=== PATIENT | female | born 1955 | race Caucasian/White ===

== ENCOUNTER → 2017-03-23 | Outpatient (CLI) | payer MEDICARE, MEDICAID ==
[~2017-03-23] MED LIST: ACET650T40 PO; ALB18R INH; ALBU8.5H IH; AMIT100T53 PO; AZIT-1 PO; AZIT-18 PO; BLOO-1318 MC; BLOO-1511 MC; BLOO-884 MC; BUPR-136 PO; CEFU500T50 PO; CEPH500T7 PO; CETI-169 PO; CETI-176 PO; CHANTIX STARTER PACK; CIPR-344 PO; CITA-137 PO; CLON-298 PO; CLON-303 PO; DICL-192 PO; DIPH-740 PO; DIPH-741 PO; ESOM40CA42 PO; FLU45SYR25 IM ONLY; FLU60SYR30 IM ONLY; FLUO-201 PO; FLUT16SP19 NS; GABA-549 PO; GLIM2TAB43 PO; GLIM4TAB50 PO; HYDR-4228 PO; HYDR-4309 PO; INSU100I28 SQ; INSU100I30 SQ; KET10 PO; LANC-714 MC; LANI SUBQ; LEVO-85 PO; LEVO500T83 PO; LEVO50TA86 PO; LISI5TAB25 PO; LOR5/325 PO; LORA-802 PO; MELA1TAB23 PO; MELO-205 PO; MELO-207 PO; MELO7.5O3 PO; METF-410 PO; MIRT45TA66 PO; MONT10TA PO; MONT10TA4 PO; NEED-498 MC; NEED-653 SQ; NICO-218 TD; NITR-105 PO; OLOOD OD; OMEP-125 PO; ONDA4TAB PO; ONDA8TAB94 PO; PHEN118S56 PO; POLY17PO25 PO; PRED20TA6 PO; PROM50TA23 PO; RANI-324 PO; RANI75TA5 PO; RIZA5TAB26 PO; RIZA5TAB30 PO; SIMV-54 PO; SITA100T PO; SUMA100T32 PO; SUMA100T33 PO; SUMA5SPR7 NS; TOPI-119 PO; TOPI-120 PO; TOPI-28 PO; TOPI100C5 PO; TRAM-420 PO; TRAM100T22 PO; TRAZ-156 PO; TRAZ-163 PO; TRIA15CR40 TP; VAR05PT PO; [UNRECOGNIZED DRUG - CODE] MC; [UNRECOGNIZED DRUG - CODE] MC; [UNRECOGNIZED DRUG - CODE] MC; [UNRECOGNIZED DRUG - CODE] MC; [UNRECOGNIZED DRUG - CODE] MC; [UNRECOGNIZED DRUG - OTHER]
[2017-03-23 16:11] LABS: PLATELET COUNT, AUTOMATED 241 K/uL (150-450)
== END ==
LOC: LAB 15:48
PROVIDERS: ATTEND Emergency Medicine
DX: E11.9 Type 2 diabetes mellitus without complications (principal)
CPT/HCPCS: 36415; 81001; 82040; 82247; 82310; 82374; 82435; 82565; 82947; 84075; 84132; 84155; 84295; 84450; 84460; 84520; 85025

== ENCOUNTER 2017-05-11 15:47 | Emergency (ER) | payer MEDICARE, MEDICAID ==
[~2017-05-11 15:47] MED LIST changes: +INSU100I10 SUBQ; +VARE1TAB4 PO
[2017-05-11] MEDS ORDERED: MECLIZINE HCL 25 MG TAB PO ONE (16:00)
--- NOTE | 2017-05-11 16:04 | ER Report ---
History and Physical Time Seen By MD: 16:00 Hx. of Stated Complaint: Pt reporting she feels "funky" and symptoms are edelmira to low blood sugar. Pt gave herself 30 units insulin this morning. Pt is prescribed to take 30 units at night. Pt had a soda at 1500. HPI/ROS CHIEF COMPLAINT: Dizziness HISTORY OF PRESENT ILLNESS: 61-year-old female history of diabetes in both insulin and by mouth medications states that earlier in the day today she bent over felt rather dizzy some blurry vision she has no history of vertigo she does [place] felt better she did not check her sugar levels but she felt that she may be low on arrival to the ER she is at 96 patient has no chest pain shortness of breath the dizziness is completely reproducible with acute changes in head position patient is abdominal pain or discomfort no back pain no additional complaints noted no urinary bladder bowel incontinence and numbness of subtle paresthesias patient denies any neurological complaints other than the dizziness which resolved on her head hold still REVIEW OF SYSTEMS: Respiratory: No cough, no dyspnea. Cardiovascular: No chest pain, no palpitations. Gastrointestinal: No vomiting, no abdominal pain. Musculoskeletal: No back pain. Remainder of the 14 system rev: Yes Allergies: Coded Allergies: Influenza Virus Vaccines (Verified Allergy, Mild, 06/08/16) aspirin (Verified Allergy, Unknown, 06/08/16) glucosamine (Verified Allergy, Unknown, 06/08/16) morphine (Verified Allergy, Unknown, 06/08/16) Home Meds Active Scripts Insulin Glargine,Hum.rec.anlog (Basaglar Kwikpen U-100) 100 Unit/Ml (3 Ml) Insuln.pen, 10 UNITS SUBQ DAILY, #1 BOX 3 Refills Take 10 units at bedtime and increase by 2 units every 2 days until fasting glucose is 120 or less. Prov:SEEMA STILES MD 04/19/17 Montelukast Sodium (MONTELUKAST SODIUM) 10 Mg Tablet, 10 MG PO DAILY, #90 TAB 4 Refills Prov:SEEMA STILES MD 04/19/17 Lisinopril (LISINOPRIL) 5 Mg Tablet, 1 TAB PO QDAY, #90 TAB 4 Refills Prov:SEEMA STILES MD 03/16/17 Blood Sugar Diagnostic (PRODIGY NO CODING) 1 Each Strip, 1 EACH MC BID, #50 STRIP 11 Refills Prov:SEEMA STILES MD 02/18/17 Metformin Hcl (METFORMIN HCL) 500 Mg Tablet, 1 TAB PO BID, #180 TAB 3 Refills Prov:CHINYERE GUZMAN APRN [employer] 02/14/17 Fluticasone Prop 50 Mcg Ns (FLONASE 50 MCG NS) 16 Gm [place].susp, 2 SPRAYS NS QDAY, #1 BOT 2 Refills Prov:SEEMA STILES MD 02/10/17 Simvastatin (SIMVASTATIN) 40 Mg Tablet, 1 TAB PO HS, #90 TAB 1 Refill Prov:SEEMA STILES MD 02/02/17 Gabapentin (GABAPENTIN) 300 Mg Capsule, 300 MG PO DAILY, #540 CAPSULE 3 Refills 1 tab daily for three days. Increase by 1 tab every three days to a maximum of 2 tabs three times a day Prov:SEEMA STILES MD 11/19/16 Albuterol Sulfate 90 Mcg/Act (PROAIR HFA 90 MCG/ACT) 8.5 Gm Hfa.aer.ad, 1-2 PUFF IH 3-4XD, #1 INHALER 11 Refills Prov:SEEMA STILES MD 10/20/16 Esomeprazole Magnesium (NEXIUM) 40 Mg Capsule.dr, 1 CAP PO QDAY, #90 CAP 4 Refills Prov:SEEMA STILES MD 07/22/16 Sumatriptan Succinate (IMITREX) 100 Mg Tablet, 100 MG PO ONCE, #9 TAB 0 Refills Take one tablet at onset of headache and repeat in 2 hours if needed. Prov:SEEMA STILES MD 03/19/16 Topiramate (TOPIRAMATE) 100 Mg Tablet, 1 TAB PO BID, #180 TAB Prov:SEMEA STILES MD 01/06/16 Sitagliptin Phosphate (JANUVIA) 100 Mg Tablet, 100 MG PO QDAY, #30 TAB 2 Refills Prov:SEEMA STILES MD 12/22/15 Cetirizine Hcl (ZYRTEC) 10 Mg Tablet, 10 MG PO QDAY, #30 TAB 5 Refills Prov:SEEMA STILES MD 11/21/15 Back Brace (BACK STABILIZER) 1 Each Each, 1 EACH MC, #1 Prov:SEEMA STILES MD 07/08/15 [place], Insulin Disposable (INSULIN PEN NEEDLE) 1 Each Dis.needle, 1 BOX MC QDAY, #1 1 Refill Check fasting glucose every morning. Prov:SEEMA STILES MD 04/09/15 Lancets (LANCETS) 1 Each Each, 1 EACH MC DAILY, #100 9 Refills Prov:SEEMA STILES MD 04/09/15 Reported Medications Mirtazapine (MIRTAZAPINE) 45 Mg Tablet, 45 MG PO HS 03/30/15 Citalopram Hydrobromide (CITALOPRAM HBR) 10 Mg Tablet, 10 MG PO QDAY, #5 TAB 03/30/15 Clonazepam (CLONAZEPAM) 1 Mg Tablet, 1 TAB PO BID, #6 TAB 01/09/15 Discontinued Scripts Varenicline Tartrate (CHANTIX) 1 Mg Tablet, 1 MG PO BID, #180 TAB 3 Refills Prov:SEEMA STILES MD 04/26/17 Polyethylene Glycol 3350 (MIRALAX) 17 Gm Powd.pack, 17 GM PO 2-3XD for 7 Days, # 14 PKT Prov:KWADWO MITCHELL MD 07/28/16 Nicotine (NICODERM CQ) 1 Each Patch.td24, 1 EACH TD DAILY, #30 ADH.PATCH Prov:SEEMA STILES MD 02/11/16 Bupropion Hcl (BUPROPION HCL SR) 150 Mg Tablet.er, 150 MG PO DAILY, #60 TAB 1 tab po daily for three days and then twice daily after that Prov:SEEMA STILES MD 01/28/16 [pen] No Conflict Check Prov:SEEMA STILES MD 04/09/15 Reviewed Nurses Notes: Yes Old Medical Records Reviewed: Yes Hx Smoking: Yes Smoking Status: Current: Every Day Smoker Exposure to Second Hand Smoke?: Yes Hx Substance Use Disorder: No Hx Alcohol Use: No Constitutional Vital Sign - Last 24 Hours 05/11/17 05/11/17 05/11/17 05/11/17 15:52 15:52 15:57 16:00 Temp 97.5 Pulse 88 87 Resp 16 B/P (MAP) 145/58 145/58 (87) 118/46 (70) Pulse Ox 92 93 O2 Delivery Room Air 05/11/17 05/11/17 05/11/17 05/11/17 16:02 16:07 16:10 16:12 Pulse 84 85 81 80 B/P (MAP) 118/54 (75) 104/55 (71) Pulse Ox 90 91 90 05/11/17 05/11/17 05/11/17 05/11/17 16:15 16:15 16:30 16:45 Pulse 86 88 82 Resp 20 B/P (MAP) 122/58 (79) Pulse Ox 91 90 89 86 O2 Delivery Room Air 05/11/17 05/11/17 05/11/17 05/11/17 16:46 16:48 16:53 16:55 Pulse 79 B/P (MAP) 119/58 (78) Pulse Ox 86 86 O2 Flow Rate 1.0 Physical Exam General Appearance: The patient is alert, has no immediate need for airway protection and no current signs of toxicity. [ ] Eyes: Pupils equal and round no injection. Respiratory: Chest is non tender, lungs are clear to auscultation. Cardiac: regular rate and rhythm [ ] Gastrointestinal: Abdomen is soft and non tender, no masses, bowel sounds normal. Musculoskeletal: Neck: Neck is supple and non tender. Extremities have full range of motion and are non tender. Skin: No rashes or lesions. Neurologic examination patient has reproducible vertiginous symptoms with acute head changes from both the sitting a prone position no nystagmus noted otherwise neurologically intact GCS of 15 DIFFERENTIAL DIAGNOSIS: After history and physical exam differential diagnosis was considered for stroke versus vertigo versus cardiac abnormality Medical Decision Making Data Points Result Diagram: 05/11/17 1625 05/11/17 1625 Laboratory Hematology Test 05/11/17 00:00 05/11/17 16:25 05/11/17 17:04 D-Dimer Quantitative (PE/DVT) 0.35 ug/ml (0-0.50) Red Blood Count 5.00 M/uL (4.17-5.56) Mean Corpuscular Volume 92.1 fL (80.0-96.0) Mean Corpuscular Hemoglobin 30.7 pg (26.0-33.0) Mean Corpuscular Hemoglobin Concent 33.3 g/dL (32.0-36.0) Red Cell Distribution Width 19.3 % (11.5-14.5) Mean Platelet Volume 8.1 fL (7.2-11.1) Neutrophils (%) (Auto) 70.5 % (39.4-72.5) Lymphocytes (%) (Auto) 22.1 % (17.6-49.6) Monocytes (%) (Auto) 5.3 % (4.1-12.4) Eosinophils (%) (Auto) 1.4 % (0.4-6.7) Basophils (%) (Auto) 0.7 % (0.3-1.4) Nucleated RBC Relative Count (auto) 0.0 /100WBC Neutrophils # (Auto) 7.5 K/uL (2.0-7.4) Lymphocytes # (Auto) 2.3 K/uL (1.3-3.6) Monocytes # (Auto) 0.6 K/uL (0.3-1.0) Eosinophils # (Auto) 0.2 K/uL (0.0-0.5) Basophils # (Auto) 0.1 K/uL (0.0-0.1) Nucleated RBC Absolute Count (auto) 0.01 K/uL Sodium Level 143 mmol/L (137-145) Potassium Level 4.7 mmol/L (3.5-5.0) Chloride Level 108 mmol/L (98-107) Carbon Dioxide Level 23 mmol/L (22-31) Blood Urea Nitrogen 14 mg/dl (7-18) Creatinine 1.40 mg/dl (0.52-1.04) Glomerular Filtration Rate Calc 38.2 Random Glucose 99 mg/dl (75-110) Calcium Level 9.1 mg/dl (8.4-10.2) Total Bilirubin 0.3 mg/dl (0.2-1.3) Aspartate Amino Transf (AST/SGOT) 20 U/L (0-35) Alanine Aminotransferase (ALT/SGPT) 21 U/L (0-56) Alkaline Phosphatase 79 U/L (0-126) Troponin I < 0.012 ng/ml Total Protein 8.3 gm/dl (6.3-8.2) Albumin 4.4 g/dl (3.5-5.0) Urine Color Yellow Urine Clarity Cloudy Urine pH 5.0 pH (4.8-9.5) Urine Specific [place] 1.016 Urine Protein 30 mg/dL (NEGATIVE) Urine Glucose (UA) Negative mg/dL (NEGATIVE) Urine Ketones Negative mg/dL (NEGATIVE) Urine Blood Moderate (NEGATIVE) Urine Nitrite Negative (NEGATIVE) Urine Bilirubin Negative (NEGATIVE) Urine Urobilinogen Negative mg/dL (0.2-1.9) Urine Leukocyte Esterase Large (NEGATIVE) Urine RBC 9 /HPF (0-2/HPF) Urine WBC 226 /HPF (0-5/HPF) Urine WBC Clumps Many /HPF Urine Squamous Epithelial Cells Few /LPF (</=FEW) Urine Bacteria Negative /HPF (NONE-FEW) Urine Mucus None /HPF (NONE-FEW) Chemistry Test 05/11/17 00:00 05/11/17 16:25 05/11/17 17:04 D-Dimer Quantitative (PE/DVT) 0.35 ug/ml (0-0.50) White Blood Count 10.6 k/uL (4.5-11.0) Red Blood Count 5.00 M/uL (4.17-5.56) Hemoglobin 15.3 g/dL (12.0-16.0) Hematocrit 46.1 % (34.0-47.0) Mean Corpuscular Volume 92.1 fL (80.0-96.0) Mean Corpuscular Hemoglobin 30.7 pg (26.0-33.0) Mean Corpuscular Hemoglobin Concent 33.3 g/dL (32.0-36.0) Red Cell Distribution Width 19.3 % (11.5-14.5) Platelet Count 242 K/uL (150-450) Mean Platelet Volume 8.1 fL (7.2-11.1) Neutrophils (%) (Auto) 70.5 % (39.4-72.5) Lymphocytes (%) (Auto) 22.1 % (17.6-49.6) Monocytes (%) (Auto) 5.3 % (4.1-12.4) Eosinophils (%) (Auto) 1.4 % (0.4-6.7) Basophils (%) (Auto) 0.7 % (0.3-1.4) Nucleated RBC Relative Count (auto) 0.0 /100WBC Neutrophils # (Auto) 7.5 K/uL (2.0-7.4) Lymphocytes # (Auto) 2.3 K/uL (1.3-3.6) Monocytes # (Auto) 0.6 K/uL (0.3-1.0) Eosinophils # (Auto) 0.2 K/uL (0.0-0.5) Basophils # (Auto) 0.1 K/uL (0.0-0.1) Nucleated RBC Absolute Count (auto) 0.01 K/uL Glomerular Filtration Rate Calc 38.2 Calcium Level 9.1 mg/dl (8.4-10.2) Total Bilirubin 0.3 mg/dl (0.2-1.3) Aspartate Amino Transf (AST/SGOT) 20 U/L (0-35) Alanine Aminotransferase (ALT/SGPT) 21 U/L (0-56) Alkaline Phosphatase 79 U/L (0-126) Troponin I < 0.012 ng/ml Total Protein 8.3 gm/dl (6.3-8.2) Albumin 4.4 g/dl (3.5-5.0) Urine Color Yellow Urine Clarity Cloudy Urine pH 5.0 pH (4.8-9.5) Urine Specific [place] 1.016 Urine Protein 30 mg/dL (NEGATIVE) Urine Glucose (UA) Negative mg/dL (NEGATIVE) Urine Ketones Negative mg/dL (NEGATIVE) Urine Blood Moderate (NEGATIVE) Urine Nitrite Negative (NEGATIVE) Urine Bilirubin Negative (NEGATIVE) Urine Urobilinogen Negative mg/dL (0.2-1.9) Urine Leukocyte Esterase Large (NEGATIVE) Urine RBC 9 /HPF (0-2/HPF) Urine WBC 226 /HPF (0-5/HPF) Urine WBC Clumps Many /HPF Urine Squamous Epithelial Cells Few /LPF (</=FEW) Urine Bacteria Negative /HPF (NONE-FEW) Urine Mucus None /HPF (NONE-FEW) Coagulation Test 05/11/17 00:00 D-Dimer Quantitative (PE/DVT) 0.35 ug/ml Urinalysis Test 05/11/17 17:04 Urine Color Yellow Urine Clarity Cloudy Urine pH 5.0 pH (4.8-9.5) Urine Specific [place] 1.016 Urine Protein 30 mg/dL (NEGATIVE) Urine Glucose (UA) Negative mg/dL (NEGATIVE) Urine Ketones Negative mg/dL (NEGATIVE) Urine Blood Moderate (NEGATIVE) Urine Nitrite Negative (NEGATIVE) Urine Bilirubin Negative (NEGATIVE) Urine Urobilinogen Negative mg/dL (0.2-1.9) Urine Leukocyte Esterase Large (NEGATIVE) Urine RBC 9 /HPF (0-2/HPF) Urine WBC 226 /HPF (0-5/HPF) Urine WBC Clumps Many /HPF Urine Squamous Epithelial Cells Few /LPF (</=FEW) Urine Bacteria Negative /HPF (NONE-FEW) Urine Mucus None /HPF (NONE-FEW) ED Course/Re-evaluation ED Course pt with neg workuo other then uti antibiotica proimary fu Decision to Disposition Date: May 11, 2017 Decision to Disposition Time: 17:52 Depart Departure Latest Vital Signs Vital Signs Date Time Temp Pulse Resp B/P (MAP) Pulse Ox O2 Delivery O2 Flow Rate FiO2 05/11/17 16:55 1.0 05/11/17 16:53 79 86 05/11/17 16:46 119/58 (78) 05/11/17 16:15 20 Room Air 05/11/17 15:52 97.5 Impression: Primary Impression: Urinary tract infection Condition: Improved Disposition: HOME OR SELF-CARE Referrals: SEEMA STILES MD (PCP) 5 Days New Scripts Ciprofloxacin Hcl (CIPRO) 500 Mg Tablet 500 MG PO BID, #20 0 Refills Prov: KWADWO MITCHELL MD 05/11/17 Patient Instructions: Urinary Tract Infection in Women (DC) KWADWO MITCHELL MD May 11, 2017 16:04
--- NOTE | 2017-05-11 16:13 | EKG ---
FACILITY: [facility] - [place] PATIENT NAME: GUS CORONA : [id number] MR: [id number] V: [id number] EXAM DATE: ORDERING PHYSICIAN: KWADWO MITCHELL TECHNOLOGIST: PREMA Bautista Reason : SYNCOPE Blood Pressure : / mmHG Vent. Rate : 085 BPM Atrial Rate : 085 BPM P-R Int : 154 ms QRS Dur : 090 ms QT Int : 372 ms P-R-T Axes : 066 070 062 degrees QTc Int : 442 ms Poor baseline in virtually every lead - recommend repeat if needed Appears to be sinus rhythm Small Q waves inferolaterally Confirmed by VERONICA BETHEA ([id number]) on 05/11/2017 7:46:03 PM Referred By: PAULA Confirmed By:VERONICA BETHEA
[2017-05-11 16:40] LABS: PLATELET COUNT, AUTOMATED 242 K/uL (150-450)
--- NOTE | 2017-05-11 16:58 | RADIOLOGY IMAGING REPORT ---
FACILITY: [facility] PATIENT NAME: Caren Lofton : 1955 MR: [id number] V: [id number] EXAM DATE: ORDERING PHYSICIAN: KWADWO MITCHELL TECHNOLOGIST: Location: [facility] Patient: Caren Lofton : 1955 Visit/Account:[id number] Date of Sevice: 05/11/2017 CT Head without contrast Indication: Syncope. Comparison: None available Technique: Axial CT images were obtained through the brain from the skull base to the vertex without administration of IV contrast. Reformatted coronal and sagittal images were also obtained. One of the following dose optimization techniques was utilized in the performance of this exam: autom ated exposure control; adjustment of the mA and/or kV according to the patient's size; or use of an i terative reconstruction technique. Specific details can be referenced in the facility's radiology CT exam operational policy. Findings: No evidence of mass, mass effect, or midline shift. No acute intracranial hemorrhage or acute territorial infarction. No extra-axial fluid collection or hydrocephalus. No abnormal density. Perdomo/white matter differentiat ion appears normal. Bony structures show no fractures or lesions. The visualized paranasal sinuses and mastoid air cells are clear. IMPRESSION: 1. No acute intracranial abnormality. Report Dictated By: Chirag Blevins at 05/11/2017 4:49 PM Report E-Signed By: Chirag Blevins at 05/11/2017 4:52 PM WSN:[id number]
--- NOTE | 2017-05-11 17:08 | RADIOLOGY IMAGING REPORT ---
FACILITY: [facility] - [place], [place] PATIENT NAME: Caren Lofton : 1955 MR: [id number] V: [id number] EXAM DATE: ORDERING PHYSICIAN: KWADWO MITCHELL TECHNOLOGIST: [place] [facility] [place] Caren Lofton : 1955 Visit/Account:[id number] Date of Sevice: 05/11/2017 Technique: CHEST PA AND LAT HISTORY: syncope COMPARISON: Chest radiographs July 28, 2016 Findings: No lobar airspace consolidation. No pleural effusion. Scattered interstitial lung markings are noted. The cardiac silhouette is unchanged. IMPRESSION: 1. No acute cardiopulmonary process. Report Dictated By: Kevan Luke DO at 05/11/2017 5:02 PM Report E-Signed By: Kevan Luke DO at 05/11/2017 5:03 PM WSN:[id number]
[2017-05-11] MEDS ORDERED: CIPR-344 PO (17:53)
--- NOTE | 2017-05-11 17:56 | EKG ---
FACILITY: [facility] - [place] PATIENT NAME: GUS CORONA : [id number] MR: [id number] V: [id number] EXAM DATE: ORDERING PHYSICIAN: KWADWO MITCHELL TECHNOLOGIST: PREMA Bautista Reason : REPEAT Blood Pressure : / mmHG Vent. Rate : 075 BPM Atrial Rate : 075 BPM P-R Int : 164 ms QRS Dur : 088 ms QT Int : 406 ms P-R-T Axes : 069 064 060 degrees QTc Int : 453 ms Sinus rhythm Possible left atrial enlargement Small Q waves inferolaterally Nonspecific ST findings inferolateral leads Confirmed by VERONICA BETHEA ([id number]) on 05/11/2017 7:49:06 PM Referred By: PAULA Confirmed By:VERONICA BETHEA
[2017-05-11 18:02] VITALS: BP 115/47
[2017-05-13] MEDS ORDERED: GOLYTE PO (11:14)
== END 2017-05-11 18:33 | disposition home or self-care (01) ==
LOC: ER 15:52
DX: N39.0 Urinary tract infection, site not specified (principal)
CPT/HCPCS: 70450; 71046; 81001; 84484; 85025; 85379; 93005; 99284; J8597; 82040; 82247; 82310; 82374; 82435; 82565; 82947; 84075; 84132; 84155; 84295; 84450; 84460; 84520

== ENCOUNTER 2017-06-08 01:37 | Day surgery (SDC) | payer MEDICARE, MEDICAID ==
[2017-06-08] VITALS (7 sets, daily range): BP systolic 92–130; BP diastolic 52–90
[~2017-06-08] VITALS: Ht 170.2 cm; Wt 70.8 kg
[~2017-06-08 01:37] MED LIST changes: +ASPI81TA94 PO; +GOLYTE PO; -TRAM100T22 PO; +TRAM100T8 PO
[2017-06-08] MEDS ORDERED: LIDOCAINE/SOD BICARB 8.4% SYR ID ONE (06:30)
[2017-06-08] MEDS ORDERED: NORMOSOL R SOLN(*) 1000 ML BAG 1,000 ML IV PRN (06:30)
[2017-06-08] MEDS ORDERED: PROPOFOL EMUL(*) 10MG/ML 20 ML 60 ML ONE (06:54)
[2017-06-08] MEDS ORDERED: LIDOCAINE MPF 1% 5 ML VIAL ONE (06:54)
[2017-06-08] MEDS ORDERED: PROPOFOL EMUL(*) 10MG/ML 20 ML 20 ML ONE (07:01)
[2017-06-08] MEDS ORDERED: DLR(*) 1000 ML BAG 1,000 ML IV ONE (07:18)
--- NOTE | 2017-06-08 08:16 | Short(Outpt) Discharge Summary ---
Discharge Summary Reason for Hosp/Final Diag: (1) Colon cancer screening Status: Chronic Hospital Course & Plan: Colonoscopy completed without problems. (2) Constipation Status: Chronic Departure Discharge to: Home, Self Care Discharge Instructions Home Meds Active Scripts Peg/Electrolytes (GOLYTELY SOLUTION) 4,000 Ml Soln, 1 GAL PO ONCE, #1 GAL 0 Refills Prov:AAMIR STEVENSON MD 05/13/17 Montelukast Sodium (MONTELUKAST SODIUM) 10 Mg Tablet, 10 MG PO DAILY, #90 TAB 4 Refills Prov:SEEMA STILES MD 04/19/17 Blood Sugar Diagnostic (PRODIGY NO CODING) 1 Each Strip, 1 EACH MC BID, #50 STRIP 11 Refills Prov:SEEMA STILES MD 02/18/17 Metformin Hcl (METFORMIN HCL) 500 Mg Tablet, 1 TAB PO BID, #180 TAB 3 Refills Prov:CHINYERE GUZMAN APRN [employer] 02/14/17 Fluticasone Prop 50 Mcg Ns (FLONASE 50 MCG NS) 16 Gm [place].susp, 2 SPRAYS NS QDAY, #1 BOT 2 Refills Prov:SEEMA STILES MD 02/10/17 Simvastatin (SIMVASTATIN) 40 Mg Tablet, 1 TAB PO HS, #90 TAB 1 Refill Prov:SEEMA STILES MD 02/02/17 Gabapentin (GABAPENTIN) 300 Mg Capsule, 300 MG PO DAILY, #540 CAPSULE 3 Refills 1 tab daily for three days. Increase by 1 tab every three days to a maximum of 2 tabs three times a day Prov:SEEMA STILES MD 11/19/16 Albuterol Sulfate 90 Mcg/Act (PROAIR HFA 90 MCG/ACT) 8.5 Gm Hfa.aer.ad, 1-2 PUFF IH 3-4XD, #1 INHALER 11 Refills Prov:SEEMA STILES MD 10/20/16 Esomeprazole Magnesium (NEXIUM) 40 Mg Capsule.dr, 1 CAP PO QDAY, #90 CAP 4 Refills Prov:SEEMA STILES MD 07/22/16 Sumatriptan Succinate (IMITREX) 100 Mg Tablet, 100 MG PO ONCE, #9 TAB 0 Refills Take one tablet at onset of headache and repeat in 2 hours if needed. Prov:SEEMA STILES MD 03/19/16 Topiramate (TOPIRAMATE) 100 Mg Tablet, 1 TAB PO BID, #180 TAB Prov:SEEMA STILES MD 01/06/16 Sitagliptin Phosphate (JANUVIA) 100 Mg Tablet, 100 MG PO QDAY, #30 TAB 2 Refills Prov:SEEMA STILES MD 12/22/15 Cetirizine Hcl (ZYRTEC) 10 Mg Tablet, 10 MG PO QDAY, #30 TAB 5 Refills Prov:SEEMA STILES MD 11/21/15 Back Brace (BACK STABILIZER) 1 Each Each, 1 EACH MC, #1 Prov:SEEMA STILES MD 07/08/15 [place], Insulin Disposable (INSULIN PEN NEEDLE) 1 Each Dis.needle, 1 BOX MC QDAY, #1 1 Refill Check fasting glucose every morning. Prov:SEEMA STILES MD 04/09/15 Lancets (LANCETS) 1 Each Each, 1 EACH MC DAILY, #100 9 Refills Prov:SEEMA STILES MD 04/09/15 Reported Medications Aspirin (ASPIRIN) 81 Mg Tab.chew, 2 TAB PO QDAY, TAB.CHEW 06/01/17 Insulin Glargine (LANTUS) 100 Unit/Ml Soln, 30 UNIT SUBQ HS, ML 06/01/17 Mirtazapine (MIRTAZAPINE) 45 Mg Tablet, 45 MG PO HS 03/30/15 Clonazepam (CLONAZEPAM) 1 Mg Tablet, 1 TAB PO BID, #6 TAB 01/09/15 Discontinued Reported Medications Citalopram Hydrobromide (CITALOPRAM HBR) 10 Mg Tablet, 10 MG PO QDAY, #5 TAB 03/30/15 Discontinued Scripts Ciprofloxacin Hcl (CIPRO) 500 Mg Tablet, 500 MG PO BID, #20 0 Refills Prov:KWADWO MITCHELL MD 05/11/17 Insulin Glargine,Hum.rec.anlog (Basaglar Kwikpen U-100) 100 Unit/Ml (3 Ml) Insuln.pen, 10 UNITS SUBQ DAILY, #1 BOX 3 Refills Take 10 units at bedtime and increase by 2 units every 2 days until fasting glucose is 120 or less. Prov:SEEMA STILES MD 04/19/17 Lisinopril (LISINOPRIL) 5 Mg Tablet, 1 TAB PO QDAY, #90 TAB 4 Refills Prov:GOSEEMA MD 03/16/17 Diet: Regular Activity: As Tolerated Special Instructions: Your colonoscopy was completed without any problems and your prep was acceptable. I didn't find any polyps, cancers, or other problems in your colon. I recommend that your next colonoscopy should be in 10 years for screening. Attached with your paperwork is a bowel regimen to help with your constipation. Problem Qualifiers (1) Constipation: Constipation type: unspecified constipation type Qualified Codes: K59.00 - Constipation, unspecified AAMIR STEVENSON MD Jun 08, 2017 08:16
== END 2017-06-08 09:07 | disposition home or self-care (01) ==
LOC: OR 01:37
PROVIDERS: ATTEND Surgery
DX: Z12.11 Encounter for screening for malignant neoplasm of colon (principal); E11.9 Type 2 diabetes mellitus without complications
CPT/HCPCS: 00812; 36416; 82948; G0121; J2001; J2704

== ENCOUNTER 2017-06-10 14:18 | Emergency (ER) | payer MEDICARE, MEDICAID ==
[2017-06-10 15:00] VITALS: BP 117/58
[2017-06-10] MEDS ORDERED: SULF-198 PO (15:34)
--- NOTE | 2017-06-10 15:34 | ER Report ---
History and Physical Time Seen By MD: 14:20 Hx. of Stated Complaint: PATIENT REPORTS THAT HER PRIMARY CARE PROVIDER REQUESTED THAT SHE COME TO THE EMERGENCY DEPARTMENT FOR BLOOD GLUCOSE ISSUES HPI/ROS CHIEF COMPLAINT: Abnormal blood glucose HISTORY OF PRESENT ILLNESS: 61 yo female presents to ED with reports of irregularly high blood sugars the past few days. Pt states that she was prescribed Lantus 10 units/ml and was suppose to give her self 2 units at a time until she reached a "normal level." Patient states that blood sugars have been between 150-350 since starting the Lantus. She reports that her sugars are usually below 120. REVIEW OF SYSTEMS: Respiratory: No cough, no dyspnea. Cardiovascular: No chest pain, no palpitations. Gastrointestinal: No vomiting, no abdominal pain. Musculoskeletal: No back pain. Allergies: Coded Allergies: morphine (Verified Allergy, Severe, poss sz, 06/01/17) Influenza Virus Vaccines (Verified Allergy, Mild, 06/08/16) aspirin (Verified Adverse Reaction, Mild, 06/01/17) glucosamine (Verified Adverse Reaction, Unknown, 06/01/17) Home Meds Active Scripts Sulfamethoxazole/Trimet 800-160 Mg Tab (BACTRIM DS TABLET) 1 Each Tablet, 1 TAB PO Q12H, #14 TAB Prov:FELICIA MEDINA 06/10/17 Montelukast Sodium (MONTELUKAST SODIUM) 10 Mg Tablet, 10 MG PO DAILY, #90 TAB 4 Refills Prov:SEEMA STILES MD 04/19/17 Blood Sugar Diagnostic (PRODIGY NO CODING) 1 Each Strip, 1 EACH MC BID, #50 STRIP 11 Refills Prov:SEEMA STILES MD 02/18/17 Metformin Hcl (METFORMIN HCL) 500 Mg Tablet, 1 TAB PO BID, #180 TAB 3 Refills Prov:CHINYERE GUZMAN APRN WELDER SETTER ELECTRON BEAM MACHINE-C 02/14/17 Fluticasone Prop 50 Mcg Ns (FLONASE 50 MCG NS) 16 Gm [place].susp, 2 SPRAYS NS QDAY, #1 BOT 2 Refills Prov:SEEMA STILES MD 02/10/17 Simvastatin (SIMVASTATIN) 40 Mg Tablet, 1 TAB PO HS, #90 TAB 1 Refill Prov:SEEMA STILES MD 02/02/17 Gabapentin (GABAPENTIN) 300 Mg Capsule, 300 MG PO DAILY, #540 CAPSULE 3 Refills 1 tab daily for three days. Increase by 1 tab every three days to a maximum of 2 tabs three times a day Prov:SEEMA STILES MD 11/19/16 Albuterol Sulfate 90 Mcg/Act (PROAIR HFA 90 MCG/ACT) 8.5 Gm Hfa.aer.ad, 1-2 PUFF IH 3-4XD, #1 INHALER 11 Refills Prov:SEEMA STILES MD 10/20/16 Esomeprazole Magnesium (NEXIUM) 40 Mg Capsule.dr, 1 CAP PO QDAY, #90 CAP 4 Refills Prov:SEEMA STILES MD 07/22/16 Sumatriptan Succinate (IMITREX) 100 Mg Tablet, 100 MG PO ONCE, #9 TAB 0 Refills Take one tablet at onset of headache and repeat in 2 hours if needed. Prov:SEEMA STILES MD 03/19/16 Topiramate (TOPIRAMATE) 100 Mg Tablet, 1 TAB PO BID, #180 TAB Prov:SEEMA STILES MD 01/06/16 Sitagliptin Phosphate (JANUVIA) 100 Mg Tablet, 100 MG PO QDAY, #30 TAB 2 Refills Prov:SEEMA STILES MD 12/22/15 Cetirizine Hcl (ZYRTEC) 10 Mg Tablet, 10 MG PO QDAY, #30 TAB 5 Refills Prov:SEEMA STILES MD 11/21/15 Back Brace (BACK STABILIZER) 1 Each Each, 1 EACH MC, #1 Prov:SEEMA STILES MD 07/08/15 [place], Insulin Disposable (INSULIN PEN NEEDLE) 1 Each Dis.needle, 1 BOX MC QDAY, #1 1 Refill Check fasting glucose every morning. Prov:SEEMA STILES MD 04/09/15 Lancets (LANCETS) 1 Each Each, 1 EACH MC DAILY, #100 9 Refills Prov:SEEMA STILES MD 04/09/15 Reported Medications Aspirin (ASPIRIN) 81 Mg Tab.chew, 2 TAB PO QDAY, TAB.CHEW 06/01/17 Insulin Glargine (LANTUS) 100 Unit/Ml Soln, 30 UNIT SUBQ HS, ML 06/01/17 Mirtazapine (MIRTAZAPINE) 45 Mg Tablet, 45 MG PO HS 03/30/15 Clonazepam (CLONAZEPAM) 1 Mg Tablet, 1 TAB PO BID, #6 TAB 01/09/15 Discontinued Scripts Peg/Electrolytes (GOLYTELY SOLUTION) 4,000 Ml Soln, 1 GAL PO ONCE, #1 GAL 0 Refills Prov:AAMIR STEVENSON MD 05/13/17 Past Medical/Surgical History Patient has a past medical history of migraines, murmur, hyperlipidemia, congestion, pneumonia, PE, small bowel obstruction, cholecystitis, arthritis, fractures, back pain, diabetes, rheumatoid arthritis, substance abuse, panic attacks. Patient has surgical history of cholecystectomy, bowel surgery, back surgery. Patient has a family medical history of diabetes. Reviewed Nurses Notes: Yes Hx Smoking: Yes (1 ppd) Smoking Status: Current: Every Day Smoker Exposure to Second Hand Smoke?: Yes Hx Substance Use Disorder: No (VERY LITTLE IN EARLY ADOLESCENCE) Hx Alcohol Use: No Constitutional Vital Sign - Last 24 Hours 06/10/17 06/10/17 06/10/17 06/10/17 14:24 14:26 14:30 14:48 Pulse 82 Resp 20 B/P (MAP) 116/68 (84) 132/55 (80) Pulse Ox 96 06/10/17 15:00 B/P (MAP) 117/58 (77) Physical Exam General Appearance: The patient is alert, has no immediate need for airway protection and no current signs of toxicity. Eyes: Pupils equal and round no injection. Respiratory: Chest is non tender, lungs are clear to auscultation. Cardiac: regular rate and rhythm Gastrointestinal: Abdomen is soft and non tender, no masses, bowel sounds normal. Musculoskeletal: Neck: Neck is supple and non tender. Extremities have full range of motion and are non tender. Skin: No rashes or lesions. DIFFERENTIAL DIAGNOSIS: After history and physical exam differential diagnosis was considered for hyperglycemia, Urinary tract infection, and poorly controlled diabetes. Medical Decision Making Data Points Result Diagram: 06/10/17 1429 Laboratory Hematology Test 06/10/17 14:25 06/10/17 14:29 Urine Color Yellow Urine Clarity Slightly-cloudy Urine pH 6.0 pH (4.8-9.5) Urine Specific [place] 1.004 Urine Protein Negative mg/dL (NEGATIVE) Urine Glucose (UA) Negative mg/dL (NEGATIVE) Urine Ketones Negative mg/dL (NEGATIVE) Urine Blood Negative (NEGATIVE) Urine Nitrite Negative (NEGATIVE) Urine Bilirubin Negative (NEGATIVE) Urine Urobilinogen Negative mg/dL (0.2-1.9) Urine Leukocyte Esterase Large (NEGATIVE) Urine RBC 1 /HPF (0-2/HPF) Urine WBC 90 /HPF (0-5/HPF) Urine Squamous Epithelial Cells Many /LPF (</=FEW) Urine Bacteria Few /HPF (NONE-FEW) Urine Mucus None /HPF (NONE-FEW) Sodium Level 145 mmol/L (137-145) Potassium Level 3.8 mmol/L (3.5-5.0) Chloride Level 106 mmol/L (98-107) Carbon Dioxide Level 25 mmol/L (22-31) Blood Urea Nitrogen 10 mg/dl (7-18) Creatinine 1.20 mg/dl (0.52-1.04) Glomerular Filtration Rate Calc 45.7 Random Glucose 113 mg/dl (75-110) Calcium Level 9.2 mg/dl (8.4-10.2) Total Bilirubin 0.3 mg/dl (0.2-1.3) Aspartate Amino Transf (AST/SGOT) 29 U/L (0-35) Alanine Aminotransferase (ALT/SGPT) 22 U/L (0-56) Alkaline Phosphatase 82 U/L (0-126) Total Protein 8.2 gm/dl (6.3-8.2) Albumin 4.4 g/dl (3.5-5.0) Chemistry Test 06/10/17 14:25 06/10/17 14:29 Urine Color Yellow Urine Clarity Slightly-cloudy Urine pH 6.0 pH (4.8-9.5) Urine Specific [place] 1.004 Urine Protein Negative mg/dL (NEGATIVE) Urine Glucose (UA) Negative mg/dL (NEGATIVE) Urine Ketones Negative mg/dL (NEGATIVE) Urine Blood Negative (NEGATIVE) Urine Nitrite Negative (NEGATIVE) Urine Bilirubin Negative (NEGATIVE) Urine Urobilinogen Negative mg/dL (0.2-1.9) Urine Leukocyte Esterase Large (NEGATIVE) Urine RBC 1 /HPF (0-2/HPF) Urine WBC 90 /HPF (0-5/HPF) Urine Squamous Epithelial Cells Many /LPF (</=FEW) Urine Bacteria Few /HPF (NONE-FEW) Urine Mucus None /HPF (NONE-FEW) Glomerular Filtration Rate Calc 45.7 Calcium Level 9.2 mg/dl (8.4-10.2) Total Bilirubin 0.3 mg/dl (0.2-1.3) Aspartate Amino Transf (AST/SGOT) 29 U/L (0-35) Alanine Aminotransferase (ALT/SGPT) 22 U/L (0-56) Alkaline Phosphatase 82 U/L (0-126) Total Protein 8.2 gm/dl (6.3-8.2) Albumin 4.4 g/dl (3.5-5.0) Urinalysis Test 06/10/17 14:25 Urine Color Yellow Urine Clarity Slightly-cloudy Urine pH 6.0 pH (4.8-9.5) Urine Specific [place] 1.004 Urine Protein Negative mg/dL (NEGATIVE) Urine Glucose (UA) Negative mg/dL (NEGATIVE) Urine Ketones Negative mg/dL (NEGATIVE) Urine Blood Negative (NEGATIVE) Urine Nitrite Negative (NEGATIVE) Urine Bilirubin Negative (NEGATIVE) Urine Urobilinogen Negative mg/dL (0.2-1.9) Urine Leukocyte Esterase Large (NEGATIVE) Urine RBC 1 /HPF (0-2/HPF) Urine WBC 90 /HPF (0-5/HPF) Urine Squamous Epithelial Cells Many /LPF (</=FEW) Urine Bacteria Few /HPF (NONE-FEW) Urine Mucus None /HPF (NONE-FEW) ED Course/Re-evaluation ED Course Patient was admitted to examined, history and physical were obtained. Differential diagnoses were considered. On reexamination patient had clear lungs , regular heart. A whole blood glucose was performed. Her blood sugar was 117. He CMP and urinalysis were obtained. CMP showed a blood sugar 113, urinalysis showed leukocyte esterase with 90 white cells per high-power field. We discussed findings with patient. Patient did not understand how to take her Lantus. She been taking it sporadically throughout the day. Due that we did inform the patient to eat well tonight, have a snack before bedtime. She is return to emergency room if condition worsens. She is follow-up with her primary care provider to discuss a new glucometer as well as follow-up appointment with family educator. Patient is to take 30 units of Lantus at night, she is to start that tomorrow. Patient verbalized understanding and agreement. Decision to Disposition Date: Jun 10, 2017 Decision to Disposition Time: 15:35 Depart Departure Latest Vital Signs Vital Signs Date Time Temp Pulse Resp B/P (MAP) Pulse Ox O2 Delivery O2 Flow Rate FiO2 06/10/17 15:00 117/58 (77) 06/10/17 14:48 82 96 06/10/17 14:24 20 Impression: Primary Impression: UTI (urinary tract infection) Condition: Improved Disposition: HOME OR SELF-CARE Referrals: ALLIE CAMPOS (PCP) New Scripts Sulfamethoxazole/Trimet 800-160 Mg Tab (BACTRIM DS TABLET) 1 Each Tablet 1 TAB PO Q12H, #14 TAB Prov: FELICIA MEDINA 06/10/17 Patient Instructions: Urinary Tract Infection in Women (ED) Additional Instructions: Take Lantus on 30 units tomorrow night. Continue taking Lantus only at night with small snack. Eat well tonight. Complete course of antibiotics for urinary tract infection. Follow up with primary care in 1 weeks for diabetes. Return to ER if condition worsens. Problem Qualifiers Primary Impression: UTI (urinary tract infection) Urinary tract infection type: acute cystitis Hematuria presence: without hematuria Qualified Codes: N30.00 - Acute cystitis without hematuria FELICIA MEDINA Jun 10, 2017 15:34
== END 2017-06-10 15:49 | disposition home or self-care (01) ==
LOC: ER 14:19
DX: N30.00 Acute cystitis without hematuria (principal)
CPT/HCPCS: 36416; 81001; 82040; 82247; 82310; 82374; 82435; 82565; 82947; 82948; 84075; 84132; 84155; 84295; 84450; 84460; 84520; 87088; 99284

== ENCOUNTER → 2017-06-23 | Outpatient (CLI) | payer MEDICARE, MEDICAID ==
[~2017-06-23] MED LIST changes: +SULF-198 PO
== END ==
LOC: LAB 13:03
PROVIDERS: ATTEND Nurse Practitioner Psychiatric/Mental Health
DX: E10.65 Type 1 diabetes mellitus with hyperglycemia (principal)
CPT/HCPCS: 36415; 82040; 82247; 82310; 82374; 82435; 82565; 82947; 83036; 84075; 84132; 84155; 84295; 84450; 84460; 84520

== ENCOUNTER 2017-07-07 13:14 | Outpatient (RCR) | payer MEDICARE, MEDICAID ==
[~2017-07-07] VITALS: Ht 170.2 cm; Wt 69.4 kg
[~2017-07-07 13:14] MED LIST changes: -METF-410 PO; +METF-411 PO; -RANI-324 PO; +RANI-366 PO
--- NOTE | 2017-07-07 16:54 | Medical Nutrition Therapy ---
Nutrition Anthropometrics Height (Inches): 67 (stated) Weight (Pounds): 153 (standing scale) Luis Fernando Nutrition Score: Luis Fernando Nutrition Risk Score: Dietary Referral Nutrition Risk Factors: Nutrition Risk Comment: Nutrition/Food History Good Skipped Meals: Yes Alcohol Use: Never Exercise: Yes (does some walking at the park) Breakfast: cereal with whole milk Lunch: 4 egg rolls from the dollar store with ranch or sweet n sour sauce Dinner: lin sandwich or lin pancakes with diet syrup, chicken & biscuit/ gravy Snacks: sugar free candy or sugar free vanilla wafer cookies, ice cream Nutritional Education Nutrition Education Topic: Diabetic Nutrition Learning Barriers: Cognitive Learning Readiness: Interested Teaching Methods: Discussion, Handout Response to Teaching: Verbalize understanding, Reinforcement needed Teaching Recipient: Patient Nutrition Counseling: Pt provided education on how to utilize her glucose monitor properly to get accurate blood readings. Pt had 10 morning blood glucose measures below 80 in the current month. Pt had one blood glucose reading in the AM of 48. Pt reports feeling no symptoms of low blood sugar. Reviewed 15-15 rule for low BG. Pt takes both long acting insulin and sulfonyurea med at bedtime. Recommend talking to PCP about possibly changing 1 med to AM since both can cause hypoglycemia. Encoruaged pt to take BG before bedtime and if lower than 150- to eat a CHO. Pt provided diet education how to better balance carbohydrates and proteins with meals. Pt reported she didn't read well. Provided low literacy information on diet using plate method with ~ 50gm CGO or 3 serving CHO/meal using pictures of CHO with serving sizes. Pt receptive to diet education. Pt made support plan and behavioural goal. Pt desired goal of 130# that she weighed when she was younger. Current wt of 153# is a BMI of 24 which is in desired range. Informed pt that 130# would give her BMI of 20, on the low end of desired range. Pt set goal of wt loss to 140#. Encouraged exercise with tone to help with her body image. Diet hx very low in protein. Pt is on disablity and food stamps. Will refer pt to [facility] program. Discussed how to increase protein to help with BG control. Reviewed low cost protein foods for pt to add to diet. Pt scheduled for classes. Nutrition Monitoring & Eval Nutrition Follow-Up: Good Intake RD Patient Assessment Time: [address] Assessment Type: RD Education Nutritional Comment: Provided 90 minutes of diabetes education focusing on nutrtion, insulin and glucometer teaching. Copies To Copies to: ALLIE CAMPOS BETH Jul 07, 2017 16:28
--- NOTE | 2017-07-22 13:32 | Medical Nutrition Therapy ---
Nutritional Education Nutrition Education Topic: Diabetic Nutrition Learning Readiness: Interested Teaching Methods: Discussion, Handout, Demonstration Response to Teaching: Verbalize understanding Teaching Recipient: Patient Nutrition Counseling: Provided group diabetes education on: sick day management, oral health, complication, A1C, eye care and retinopathy, nephropathy, neuropathy, foot care, exercise, heart healthy, hypo and hyperglycemia, infection, personal health habits, stress, depression and sexual healthy. Nutrition Monitoring & Eval RD Patient Assessment Time: [address] Assessment Type: RD Education Nutritional Comment: lProvided 80 minutes of diabetes education focusing on life style skills Copies To Copies to: ALLIE CAMPOS BETH July 22, 2017 13:32
== END 2017-08-10 13:18 | disposition home or self-care (01) ==
LOC: DIET 13:14
PROVIDERS: ATTEND Nurse Practitioner Psychiatric/Mental Health
DX: Z71.3 Dietary counseling and surveillance (principal); E10.65 Type 1 diabetes mellitus with hyperglycemia; Z79.4 Long term (current) use of insulin; Z68.24 Body mass index [BMI] 24.0-24.9, adult
CPT/HCPCS: G0108; G0109

== ENCOUNTER 2017-08-10 22:20 | Emergency (ER) | payer MEDICARE, MEDICAID ==
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
[2017-08-11] VITALS: BP 119/54
== END 2017-08-11 00:10 | disposition home or self-care (01) ==
LOC: ER 22:26
DX: S80.11XA Contusion of right lower leg, initial encounter (principal); W50.1XXA Accidental kick by another person, initial encounter
CPT/HCPCS: 73564; 99282

== ENCOUNTER → 2017-08-11 | Outpatient (CLI) | payer MEDICARE, MEDICAID | LOC: LAB 11:49 | PROVIDERS: ATTEND Nurse Practitioner Psychiatric/Mental Health | DX: E10.65 Type 1 diabetes mellitus with hyperglycemia (principal) | CPT/HCPCS: 36415; 82040; 82247; 82310; 82374; 82435; 82565; 82947; 83036; 84075; 84132; 84155; 84295; 84450; 84460; 84520 ==

== ENCOUNTER 2018-01-17 12:54 | Emergency (ER) | payer MEDICARE, MEDICAID ==
[~2018-01-17 12:54] MED LIST changes: -CLON-298 PO; -CLON-303 PO; +CLON-331 PO; +CLON-333 PO; -HYDR-4309 PO; +HYDR-653 PO; -METF-411 PO; +METF-450 PO; -MIRT45TA66 PO; +MIRT45TA8 PO; -TRAZ-156 PO; -TRAZ-163 PO; +TRAZ100T31 PO; +TRAZ50TA34 PO
--- NOTE | 2018-01-17 13:08 | ER Report ---
History and Physical Time Seen By MD: 13:07 HPI/ROS CHIEF COMPLAINT: [] HISTORY OF PRESENT ILLNESS: [must have 4 elements] REVIEW OF SYSTEMS: Constitutional: [No fever, no chills.] Eyes: [No discharge.] ENT: [No sore throat.] Cardiovascular: [No chest pain, no palpitations.] Respiratory: [No cough, no shortness of breath.] Gastrointestinal: [No abdominal pain, no vomiting.] Genitourinary: [No hematuria.] Musculoskeletal: [No back pain.] Skin: [No rashes.] Neurological: [No headache.] Allergies: Coded Allergies: morphine (Verified Allergy, Severe, poss sz, 08/10/17) Influenza Virus Vaccines (Verified Allergy, Mild, 08/10/17) aspirin (Verified Adverse Reaction, Mild, 08/10/17) glucosamine (Verified Adverse Reaction, Unknown, 08/10/17) Home Meds Active Scripts Esomeprazole Magnesium (NEXIUM) 40 Mg Capsule.dr, 1 CAP PO QDAY, #90 CAP 4 Refills Prov:SEEMA STILES MD 09/23/17 Montelukast Sodium (MONTELUKAST SODIUM) 10 Mg Tablet, 10 MG PO DAILY, #90 TAB 4 Refills Prov:SEEMA STILES MD 04/19/17 Blood Sugar Diagnostic (PRODIGY NO CODING) 1 Each Strip, 1 EACH MC BID, #50 STRIP 11 Refills Prov:SEEMA STILES MD 02/18/17 Metformin Hcl (METFORMIN HCL) 500 Mg Tablet, 1 TAB PO BID, #180 TAB 3 Refills Prov:CHINYERE GUZMAN APRN CRITICAL POWER TECHNICIAN-C 02/14/17 Fluticasone Prop 50 Mcg Ns (FLONASE 50 MCG NS) 16 Gm [place].susp, 2 SPRAYS NS QDAY, #1 BOT 2 Refills Prov:SEEMA STILES MD 02/10/17 Simvastatin (SIMVASTATIN) 40 Mg Tablet, 1 TAB PO HS, #90 TAB 1 Refill Prov:SEEMA STILES MD 02/02/17 Gabapentin (GABAPENTIN) 300 Mg Capsule, 300 MG PO DAILY, #540 CAPSULE 3 Refills 1 tab daily for three days. Increase by 1 tab every three days to a maximum of 2 tabs three times a day Prov:SEEMA STILES MD 11/19/16 Albuterol Sulfate 90 Mcg/Act (PROAIR HFA 90 MCG/ACT) 8.5 Gm Hfa.aer.ad, 1-2 PUFF IH 3-4XD, #1 INHALER 11 Refills Prov:SEEMA STILES MD 10/20/16 Topiramate (TOPIRAMATE) 100 Mg Tablet, 1 TAB PO BID, #180 TAB Prov:SEEMA STILES MD 01/06/16 Sitagliptin Phosphate (JANUVIA) 100 Mg Tablet, 100 MG PO QDAY, #30 TAB 2 Refills Prov:SEEMA STILES MD 12/22/15 Cetirizine Hcl (ZYRTEC) 10 Mg Tablet, 10 MG PO QDAY, #30 TAB 5 Refills Prov:SEEMA STILES MD 11/21/15 Back Brace (BACK STABILIZER) 1 Each Each, 1 EACH MC, #1 Prov:SEEMA STILES MD 07/08/15 [place], Insulin Disposable (INSULIN PEN NEEDLE) 1 Each Dis.needle, 1 BOX MC QDAY, #1 1 Refill Check fasting glucose every morning. Prov:SEEMA STILES MD 04/09/15 Lancets (LANCETS) 1 Each Each, 1 EACH MC DAILY, #100 9 Refills Prov:SEEMA STILES MD 04/09/15 Reported Medications Aspirin (ASPIRIN) 81 Mg Tab.chew, 2 TAB PO QDAY, TAB.CHEW 06/01/17 Insulin Glargine (LANTUS) 100 Unit/Ml Soln, 30 UNIT SUBQ HS, ML 06/01/17 Mirtazapine (MIRTAZAPINE) 45 Mg Tablet, 45 MG PO HS 03/30/15 Clonazepam (CLONAZEPAM) 1 Mg Tablet, 1 TAB PO BID, #6 TAB 01/09/15 Hx Smoking: Yes (1 ppd) Smoking Status: Current: Every Day Smoker Exposure to Second Hand Smoke?: Yes Hx Substance Use Disorder: No (VERY LITTLE IN EARLY ADOLESCENCE) Hx Alcohol Use: No Physical Exam General Appearance: [The patient is alert, has no immediate need for airway protection and no signs of toxicity.] [ ] [Eyes:] [Pupils equal and round no pallor or injection.] [ENT, Mouth:] [Mucous membranes are moist.] Respiratory: [There are no retractions, lungs are clear to auscultation.] Cardiovascular: [Regular rate and rhythm.] [ ] Gastrointestinal: [Abdomen is soft and non tender, no masses, bowel sounds normal.] [Neurological:] [ ] [Skin:] [Warm and dry, no rashes.] [Musculoskeletal:] [Neck is supple non tender.] [Extremities are nontender, nonswollen and have full range of motion.] [ ] [DIFFERENTIAL DIAGNOSIS: After history and physical exam differential diagnosis was considered for] [ ] Depart Departure Condition: Stable Disposition: HOME OR SELF-CARE Referrals: ALLIE CAMPOS (PCP) CJ SANCHEZ-BC Jan 17, 2018 13:08
[2018-01-17 14:30] VITALS: BP 132/66
--- NOTE | 2018-01-17 14:41 | ER Report ---
History and Physical Time Seen By MD: 14:30 Hx. of Stated Complaint: sinus pressures HPI/ROS CHIEF COMPLAINT: Sinus pressure HISTORY OF PRESENT ILLNESS: Patient is a 62-year-old female who comes in with complaint of 4 days of sinus pressure or nasal discharge fever last night to 102 Fahrenheit. Patient has been seeing her primary care provider Allie Recinos over the past 3 weeks and has been diagnosed with sinusitis. She's been on a ntibiotics for week and then a few days later she has recurrence of her symptoms. She then switches to a different antibiotic again feels better and then symptoms return. She presents to the emergency department today for evaluation. She does have a history of migraine headaches but states this feels different. She does report postnasal drip and sore throat. She also admits to a nonproductive cough. Patient is a smoker. REVIEW OF SYSTEMS: ENT: Sinus pressure, nasal discharge, sore throat, postnasal drip Respiratory: Dry cough Cardiovascular: No chest pain, no palpitations. Gastrointestinal: No vomiting, no abdominal pain. Musculoskeletal: No back pain. Allergies: Coded Allergies: morphine (Verified Allergy, Severe, poss sz, 01/17/18) Influenza Virus Vaccines (Verified Allergy, Mild, 01/17/18) aspirin (Verified Adverse Reaction, Mild, 01/17/18) glucosamine (Verified Adverse Reaction, Unknown, 01/17/18) Home Meds Active Scripts Pseudoephedrine Hcl (SUDAFED 12 HOUR) 120 Mg Tablet.er, 120 MG PO Q12H for sinus pressure, #28 TAB 0 Refills Prov:MERCEDES WYNN MD 01/17/18 Fluticasone Prop 50 Mcg Ns (FLONASE 50 MCG NS) 16 Gm [place].susp, 1 SPRAY NS BID, #1 BOT 0 Refills Prov:MERCEDES WYNN MD 01/17/18 Amoxicillin/Pot Clav 875-125 Mg Tab (AUGMENTIN 875-125 TABLET) 1 Each Tablet, 1 TAB PO Q12H for 14 Days, #28 TAB 0 Refills Prov:MERCEDES WYNN MD 01/17/18 Esomeprazole Magnesium (NEXIUM) 40 Mg Capsule.dr, 1 CAP PO QDAY, #90 CAP 4 Refills Prov:SEEMA STILES MD 09/23/17 Montelukast Sodium (MONTELUKAST SODIUM) 10 Mg Tablet, 10 MG PO DAILY, #90 TAB 4 Refills Prov:SEEMA STILES MD 04/19/17 Blood Sugar Diagnostic (PRODIGY NO CODING) 1 Each Strip, 1 EACH MC BID, #50 STRIP 11 Refills Prov:SEEMA STILES MD 02/18/17 Metformin Hcl (METFORMIN HCL) 500 Mg Tablet, 1 TAB PO BID, #180 TAB 3 Refills Prov:CHINYERE GUZMAN APRN PROCESSING ANALYST-C 02/14/17 Fluticasone Prop 50 Mcg Ns (FLONASE 50 MCG NS) 16 Gm [place].susp, 2 SPRAYS NS QDAY, #1 BOT 2 Refills Prov:SEEMA STILES MD 02/10/17 Simvastatin (SIMVASTATIN) 40 Mg Tablet, 1 TAB PO HS, #90 TAB 1 Refill Prov:SEEMA STILES MD 02/02/17 Gabapentin (GABAPENTIN) 300 Mg Capsule, 300 MG PO DAILY, #540 CAPSULE 3 Refills 1 tab daily for three days. Increase by 1 tab every three days to a maximum of 2 tabs three times a day Prov:SEEMA STILES MD 11/19/16 Albuterol Sulfate 90 Mcg/Act (PROAIR HFA 90 MCG/ACT) 8.5 Gm Hfa.aer.ad, 1-2 PUFF IH 3-4XD, #1 INHALER 11 Refills Prov:SEEMA STILES MD 10/20/16 Topiramate (TOPIRAMATE) 100 Mg Tablet, 1 TAB PO BID, #180 TAB Prov:SEEMA STILES MD 01/06/16 Sitagliptin Phosphate (JANUVIA) 100 Mg Tablet, 100 MG PO QDAY, #30 TAB 2 Refills Prov:SEEMA STILES MD 12/22/15 Cetirizine Hcl (ZYRTEC) 10 Mg Tablet, 10 MG PO QDAY, #30 TAB 5 Refills Prov:SEEMA STILES MD 11/21/15 [place], Insulin Disposable (INSULIN PEN NEEDLE) 1 Each Dis.needle, 1 BOX MC QDAY, #1 1 Refill Check fasting glucose every morning. Prov:SEEMA STILES MD 04/09/15 Lancets (LANCETS) 1 Each Each, 1 EACH MC DAILY, #100 9 Refills Prov:SEEMA STILES MD 04/09/15 Reported Medications Aspirin (ASPIRIN) 81 Mg Tab.chew, 2 TAB PO QDAY, TAB.CHEW 06/01/17 Insulin Glargine (LANTUS) 100 Unit/Ml Soln, 30 UNIT SUBQ HS, ML 06/01/17 Mirtazapine (MIRTAZAPINE) 45 Mg Tablet, 45 MG PO HS 03/30/15 Clonazepam (CLONAZEPAM) 1 Mg Tablet, 1 TAB PO BID, #6 TAB 01/09/15 Discontinued Scripts Back Brace (BACK STABILIZER) 1 Each Each, 1 EACH , #1 Prov:SEEMA STILES MD 07/08/15 Past Medical/Surgical History Insulin requiring diabetic, reactive airways disease, migraines Hx Smoking: Yes (1 ppd) Smoking Status: Current: Every Day Smoker Exposure to Second Hand Smoke?: Yes Hx Substance Use Disorder: No (VERY LITTLE IN EARLY ADOLESCENCE) Hx Alcohol Use: No Constitutional Vital Sign - Last 24 Hours 01/17/18 14:00 Temp 98.2 Pulse 82 Resp 14 B/P (MAP) 135/63 Pulse Ox 88 O2 Delivery Room Air Physical Exam General Appearance: The patient is alert, has no immediate need for airway protection and no current signs of toxicity. Eyes: Pupils equal and round no injection. ENT: TMs and canals clear bilaterally. Oropharynx reveals posterior cobblestoning. No tenderness to palpation of the maxillary and frontal sinuses bilaterally. Ears reveal a mucoid discharge bilaterally. Respiratory: Chest is non tender, lungs are clear to auscultation. Mild wheeze with forced exhalation Cardiac: regular rate and rhythm Gastrointestinal: Abdomen is soft and non tender, no masses, bowel sounds normal. Musculoskeletal: Neck: Neck is supple and non tender. Extremities have full range of motion and are non tender. Skin: No rashes or lesions. Medical Decision Making EKG/Imaging Imaging X-ray negative by my interpretation for acute process. ED Course/Re-evaluation ED Course History and physical exam 0.2 sinusitis. I believe patient has only partially treated sinusitis that of rebound when her antibiotic course is complete. I will prescribe a 14 day course of Augmentin will also prescribe Sudafed. Flonase and encouraged patient to use her at home inhaler for cough. Decision to Disposition Date: Jan 17, 2018 Decision to Disposition Time: 14:50 Depart Departure Latest Vital Signs Vital Signs Date Time Temp Pulse Resp B/P (MAP) Pulse Ox O2 Delivery O2 Flow Rate FiO2 01/17/18 14:00 98.2 82 14 135/63 88 Room Air Impression: Primary Impression: Sinusitis Condition: Condition Unchanged Disposition: HOME OR SELF-CARE Referrals: ALLIE RECINOS (PCP) DESTINY SHEN JR, MD Make a follow up appointment in two weeks if your sinus symptoms persist New Scripts Pseudoephedrine Hcl (SUDAFED 12 HOUR) 120 Mg Tablet.er 120 MG PO Q12H for sinus pressure, #28 TAB 0 Refills Prov: MERCEDES WYNN MD 01/17/18 Fluticasone Prop 50 Mcg Ns (FLONASE 50 MCG NS) 16 Gm [place].susp 1 SPRAY NS BID, #1 BOT 0 Refills Prov: MERCEDES WYNN MD 01/17/18 Amoxicillin/Pot Clav 875-125 Mg Tab (AUGMENTIN 875-125 TABLET) 1 Each Tablet 1 TAB PO Q12H for 14 Days, #28 TAB 0 Refills Prov: MERCEDES WYNN MD 01/17/18 Patient Instructions: Sinusitis (GEN) Additional Instructions: Take your antibiotics as directed until complete. Continue all your outpatient medications. Make a follow up appointment with Dr Sehn if your symptoms persist more than 14 days Problem Qualifiers Primary Impression: Sinusitis Sinusitis location: unspecified location Chronicity: acute Recurrence: recurrent Qualified Codes: J01.91 - Acute recurrent sinusitis, unspecified MERCEDES WYNN MD Jan 17, 2018 14:41
[2018-01-17] MEDS ORDERED: PSEU120T69 PO (14:44)
[2018-01-17] MEDS ORDERED: FLUT16SP19 NS (14:44)
[2018-01-17] MEDS ORDERED: AMOX-559 PO (14:44)
--- NOTE | 2018-01-17 15:02 | RADIOLOGY IMAGING REPORT ---
FACILITY: [facility] [place] PATIENT NAME: Caren Lofton : 1955 MR: [id number] V: [id number] EXAM DATE: ORDERING PHYSICIAN: MERCEDES WYNN TECHNOLOGIST: Location: [facility] Patient: Caren Lofton : 1955 Visit/Account:[id number] Date of Sevice: 01/17/2018 2 VIEWS CHEST INDICATION: Cough. COMPARISON: 05/11/2017 FINDINGS: The lungs are clear and are well aerated. No effusion or pneumothorax. Slightly asymmetric pleural pa renchymal opacity in the right apex is seen. This has been present on exams dating back to at least 2 014 and is unchanged. Heart size and mediastinal contours are normal. IMPRESSION: 1. No radiographic evidence of active disease. Report Dictated By: Jluis Hart at 01/17/2018 2:52 PM Report E-Signed By: Jluis Hart at 01/17/2018 2:57 PM WSN:[id number]
== END 2018-01-17 14:59 | disposition home or self-care (01) ==
LOC: ER 14:27
DX: J01.91 Acute recurrent sinusitis, unspecified (principal); F17.210 Nicotine dependence, cigarettes, uncomplicated
CPT/HCPCS: 71046; 99283

== ENCOUNTER 2018-02-05 07:32 | Emergency (ER) | payer MEDICARE, MEDICAID ==
[~2018-02-05 07:32] MED LIST changes: +AMOX-559 PO; +PSEU120T69 PO; -RANI75TA5 PO; +RANI75TA51 PO
--- NOTE | 2018-02-05 07:34 | ER Report ---
History and Physical Time Seen By MD: 07:35 HPI/ROS CHIEF COMPLAINT: Elevated Blood Sugar HISTORY OF PRESENT ILLNESS: Patient is a 60-year-old female who is noticed her blood sugars been elevated for the last few days between 200-300 mg/dL. She is on 80 mg of Lantus every evening around 5 PM along with Januvia and metformin. She denies any recent changes in diet although she has been treated recently for a sinus infection. Patient reports episodes of confusion at times. Reports falls. She states this was when she was being treated for her sinus infection. Currently she denies any sinus pressure pain. She denies any fevers or chills. REVIEW OF SYSTEMS: Constitutional: No fever, no chills. Eyes: No discharge. ENT: No sore throat. Cardiovascular: No chest pain, no palpitations. Respiratory: No cough, no shortness of breath. Gastrointestinal: No abdominal pain, no vomiting. Genitourinary: No hematuria. Musculoskeletal: No back pain. Skin: No rashes. Neurological: No headache. Allergies: Coded Allergies: morphine (Verified Allergy, Severe, poss sz, 02/05/18) Influenza Virus Vaccines (Verified Allergy, Mild, 02/05/18) aspirin (Verified Adverse Reaction, Mild, 02/05/18) glucosamine (Verified Adverse Reaction, Unknown, 02/05/18) Home Meds Active Scripts Pseudoephedrine Hcl (SUDAFED 12 HOUR) 120 Mg Tablet.er, 120 MG PO Q12H for sinus pressure, #28 TAB 0 Refills Prov:MERCEDES WYNN MD 01/17/18 Fluticasone Prop 50 Mcg Ns (FLONASE 50 MCG NS) 16 Gm [place].susp, 1 SPRAY NS BID, #1 BOT 0 Refills Prov:MERCEDES WYNN MD 01/17/18 Esomeprazole Magnesium (NEXIUM) 40 Mg Capsule.dr, 1 CAP PO QDAY, #90 CAP 4 Refills Prov:SEEMA STILES MD 09/23/17 Montelukast Sodium (MONTELUKAST SODIUM) 10 Mg Tablet, 10 MG PO DAILY, #90 TAB 4 Refills Prov:SEEMA STILES MD 04/19/17 Blood Sugar Diagnostic (PRODIGY NO CODING) 1 Each Strip, 1 EACH MC BID, #50 STRIP 11 Refills Prov:SEEMA SITLES MD 02/18/17 Metformin Hcl (METFORMIN HCL) 500 Mg Tablet, 1 TAB PO BID, #180 TAB 3 Refills Prov:CHINYERE GUZMAN APRN PULLER OUT-C 02/14/17 Fluticasone Prop 50 Mcg Ns (FLONASE 50 MCG NS) 16 Gm [place].susp, 2 SPRAYS NS QDAY, #1 BOT 2 Refills Prov:SEEMA STILES MD 02/10/17 Simvastatin (SIMVASTATIN) 40 Mg Tablet, 1 TAB PO HS, #90 TAB 1 Refill Prov:SEEMA STILES MD 02/02/17 Gabapentin (GABAPENTIN) 300 Mg Capsule, 300 MG PO DAILY, #540 CAPSULE 3 Refills 1 tab daily for three days. Increase by 1 tab every three days to a maximum of 2 tabs three times a day Prov:SEEMA STILES MD 11/19/16 Albuterol Sulfate 90 Mcg/Act (PROAIR HFA 90 MCG/ACT) 8.5 Gm Hfa.aer.ad, 1-2 PUFF IH 3-4XD, #1 INHALER 11 Refills Prov:SEEMA STILES MD 10/20/16 Topiramate (TOPIRAMATE) 100 Mg Tablet, 1 TAB PO BID, #180 TAB Prov:SEEMA STILES MD 01/06/16 Sitagliptin Phosphate (JANUVIA) 100 Mg Tablet, 100 MG PO QDAY, #30 TAB 2 Refills Prov:SEEMA STILES MD 12/22/15 Cetirizine Hcl (ZYRTEC) 10 Mg Tablet, 10 MG PO QDAY, #30 TAB 5 Refills Prov:SEEMA STILES MD 11/21/15 [place], Insulin Disposable (INSULIN PEN NEEDLE) 1 Each Dis.needle, 1 BOX MC QDAY, #1 1 Refill Check fasting glucose every morning. Prov:SEEMA STILES MD 04/09/15 Lancets (LANCETS) 1 Each Each, 1 EACH MC DAILY, #100 9 Refills Prov:SEEMA STILES MD 04/09/15 Reported Medications Aspirin (ASPIRIN) 81 Mg Tab.chew, 2 TAB PO QDAY, TAB.CHEW 06/01/17 Insulin Glargine (LANTUS) 100 Unit/Ml Soln, 30 UNIT SUBQ HS, ML 06/01/17 Mirtazapine (MIRTAZAPINE) 45 Mg Tablet, 45 MG PO HS 03/30/15 Clonazepam (CLONAZEPAM) 1 Mg Tablet, 1 TAB PO BID, #6 TAB 01/09/15 Discontinued Scripts Amoxicillin/Pot Clav 875-125 Mg Tab (AUGMENTIN 875-125 TABLET) 1 Each Tablet, 1 TAB PO Q12H for 14 Days, #28 TAB 0 Refills Prov:MERCEDES WYNN MD 01/17/18 Past Medical/Surgical History Insulin requiring diabetic, reactive airways disease, migraines Hx Smoking: Yes (1 ppd) Smoking Status: Current: Every Day Smoker Exposure to Second Hand Smoke?: Yes Hx Substance Use Disorder: No (VERY LITTLE IN EARLY ADOLESCENCE) Hx Alcohol Use: No Constitutional Vital Sign - Last 24 Hours 02/05/18 02/05/18 02/05/18 02/05/18 07:40 07:51 07:51 08:00 Temp 97.7 Pulse 89 Resp 19 B/P (MAP) 125/58 (80) 125/58 120/57 (78) Pulse Ox 90 O2 Delivery Room Air O2 Flow Rate 2.0 02/05/18 02/05/18 02/05/18 02/05/18 08:02 08:07 08:30 08:37 Pulse 87 87 80 B/P (MAP) 125/54 (77) Pulse Ox 94 94 93 02/05/18 02/05/18 02/05/18 02/05/18 09:00 09:07 09:30 09:37 Pulse 76 74 B/P (MAP) 114/50 (71) 102/51 (68) Pulse Ox 95 94 02/05/18 02/05/18 02/05/18 02/05/18 10:00 10:05 10:30 10:35 Pulse 75 79 B/P (MAP) 123/55 (77) 141/64 (89) Pulse Ox 92 92 02/05/18 10:48 B/P (MAP) 104/71 (82) Physical Exam General Appearance: The patient is alert, has no immediate need for airway protection and no signs of toxicity. Eyes: Pupils equal and round no pallor or injection. ENT, Mouth: Mucous membranes are moist. Respiratory: There are no retractions, lungs are clear to auscultation. Cardiovascular: Regular rate and rhythm. Gastrointestinal: Abdomen is soft and non tender, no masses, bowel sounds normal. Neurological: Awake and alert Skin: Warm and dry, no rashes. Musculoskeletal: Neck is supple non tender. Extremities are nontender, nonswollen and have full range of motion. Medical Decision Making Data Points Result Diagram: 02/05/18 0807 02/05/18 0807 Laboratory Hematology Test 02/05/18 08:07 02/05/18 08:09 Red Blood Count 4.65 M/uL (4.17-5.56) Mean Corpuscular Volume 91.7 fL (80.0-96.0) Mean Corpuscular Hemoglobin 30.8 pg (26.0-33.0) Mean Corpuscular Hemoglobin Concent 33.6 g/dL (32.0-36.0) Red Cell Distribution Width 16.3 % (11.5-14.5) Mean Platelet Volume 8.2 fL (7.2-11.1) Neutrophils (%) (Auto) 61.5 % (39.4-72.5) Lymphocytes (%) (Auto) 30.1 % (17.6-49.6) Monocytes (%) (Auto) 5.9 % (4.1-12.4) Eosinophils (%) (Auto) 2.0 % (0.4-6.7) Basophils (%) (Auto) 0.5 % (0.3-1.4) Nucleated RBC Relative Count (auto) 0.1 /100WBC Neutrophils # (Auto) 5.6 K/uL (2.0-7.4) Lymphocytes # (Auto) 2.7 K/uL (1.3-3.6) Monocytes # (Auto) 0.5 K/uL (0.3-1.0) Eosinophils # (Auto) 0.2 K/uL (0.0-0.5) Basophils # (Auto) 0.0 K/uL (0.0-0.1) Nucleated RBC Absolute Count (auto) 0.01 K/uL Sodium Level 140 mmol/L (137-145) Potassium Level 4.1 mmol/L (3.5-5.0) Chloride Level 106 mmol/L (98-107) Carbon Dioxide Level 22 mmol/L (22-31) Blood Urea Nitrogen 18 mg/dl (7-18) Creatinine 1.00 mg/dl (0.52-1.04) Glomerular Filtration Rate Calc 56.2 Random Glucose 186 mg/dl (75-110) Calcium Level 8.9 mg/dl (8.4-10.2) Total Bilirubin 0.3 mg/dl (0.2-1.3) Aspartate Amino Transf (AST/SGOT) 17 U/L (0-35) Alanine Aminotransferase (ALT/SGPT) 19 U/L (0-56) Alkaline Phosphatase 59 U/L (0-126) Total Protein 7.0 g/dl (6.3-8.2) Albumin 3.7 g/dl (3.5-5.0) Lipase 386 U/L (23-300) Urine Color Yellow Urine Clarity Clear Urine pH 5.0 pH (4.8-9.5) Urine Specific [place] 1.017 Urine Protein 100 mg/dL (NEGATIVE) Urine Glucose (UA) Negative mg/dL (NEGATIVE) Urine Ketones Negative mg/dL (NEGATIVE) Urine Blood Negative (NEGATIVE) Urine Nitrite Negative (NEGATIVE) Urine Bilirubin Negative (NEGATIVE) Urine Urobilinogen Negative mg/dL (0.2-1.9) Urine Leukocyte Esterase Small (NEGATIVE) Urine RBC 2 /HPF (0-2/HPF) Urine WBC 7 /HPF (0-5/HPF) Urine Squamous Epithelial Cells Moderate /LPF (</=FEW) Urine Bacteria Few /HPF (NONE-FEW) Urine Hyaline Casts Few /LPF (NONE-FEW) Urine Mucus None /HPF (NONE-FEW) Chemistry Test 02/05/18 08:07 02/05/18 08:09 White Blood Count 9.1 k/uL (4.5-11.0) Red Blood Count 4.65 M/uL (4.17-5.56) Hemoglobin 14.3 g/dL (12.0-16.0) Hematocrit 42.6 % (34.0-47.0) Mean Corpuscular Volume 91.7 fL (80.0-96.0) Mean Corpuscular Hemoglobin 30.8 pg (26.0-33.0) Mean Corpuscular Hemoglobin Concent 33.6 g/dL (32.0-36.0) Red Cell Distribution Width 16.3 % (11.5-14.5) Platelet Count 208 K/uL (150-450) Mean Platelet Volume 8.2 fL (7.2-11.1) Neutrophils (%) (Auto) 61.5 % (39.4-72.5) Lymphocytes (%) (Auto) 30.1 % (17.6-49.6) Monocytes (%) (Auto) 5.9 % (4.1-12.4) Eosinophils (%) (Auto) 2.0 % (0.4-6.7) Basophils (%) (Auto) 0.5 % (0.3-1.4) Nucleated RBC Relative Count (auto) 0.1 /100WBC Neutrophils # (Auto) 5.6 K/uL (2.0-7.4) Lymphocytes # (Auto) 2.7 K/uL (1.3-3.6) Monocytes # (Auto) 0.5 K/uL (0.3-1.0) Eosinophils # (Auto) 0.2 K/uL (0.0-0.5) Basophils # (Auto) 0.0 K/uL (0.0-0.1) Nucleated RBC Absolute Count (auto) 0.01 K/uL Glomerular Filtration Rate Calc 56.2 Calcium Level 8.9 mg/dl (8.4-10.2) Total Bilirubin 0.3 mg/dl (0.2-1.3) Aspartate Amino Transf (AST/SGOT) 17 U/L (0-35) Alanine Aminotransferase (ALT/SGPT) 19 U/L (0-56) Alkaline Phosphatase 59 U/L (0-126) Total Protein 7.0 g/dl (6.3-8.2) Albumin 3.7 g/dl (3.5-5.0) Lipase 386 U/L (23-300) Urine Color Yellow Urine Clarity Clear Urine pH 5.0 pH (4.8-9.5) Urine Specific [place] 1.017 Urine Protein 100 mg/dL (NEGATIVE) Urine Glucose (UA) Negative mg/dL (NEGATIVE) Urine Ketones Negative mg/dL (NEGATIVE) Urine Blood Negative (NEGATIVE) Urine Nitrite Negative (NEGATIVE) Urine Bilirubin Negative (NEGATIVE) Urine Urobilinogen Negative mg/dL (0.2-1.9) Urine Leukocyte Esterase Small (NEGATIVE) Urine RBC 2 /HPF (0-2/HPF) Urine WBC 7 /HPF (0-5/HPF) Urine Squamous Epithelial Cells Moderate /LPF (</=FEW) Urine Bacteria Few /HPF (NONE-FEW) Urine Hyaline Casts Few /LPF (NONE-FEW) Urine Mucus None /HPF (NONE-FEW) Urinalysis Test 02/05/18 08:09 Urine Color Yellow Urine Clarity Clear Urine pH 5.0 pH (4.8-9.5) Urine Specific [place] 1.017 Urine Protein 100 mg/dL (NEGATIVE) Urine Glucose (UA) Negative mg/dL (NEGATIVE) Urine Ketones Negative mg/dL (NEGATIVE) Urine Blood Negative (NEGATIVE) Urine Nitrite Negative (NEGATIVE) Urine Bilirubin Negative (NEGATIVE) Urine Urobilinogen Negative mg/dL (0.2-1.9) Urine Leukocyte Esterase Small (NEGATIVE) Urine RBC 2 /HPF (0-2/HPF) Urine WBC 7 /HPF (0-5/HPF) Urine Squamous Epithelial Cells Moderate /LPF (</=FEW) Urine Bacteria Few /HPF (NONE-FEW) Urine Hyaline Casts Few /LPF (NONE-FEW) Urine Mucus None /HPF (NONE-FEW) EKG/Imaging Imaging CT of the head unremarkable ED Course/Re-evaluation ED Course 02/05/2018 10:38:02 am Blood sugar 186 after some IV fluids. Workup is otherwise unremarkable. We'll encourage patient to follow-up with her primary care provider early this week. Decision to Disposition Date: Feb 05, 2018 Decision to Disposition Time: 10:39 Depart Departure Latest Vital Signs Vital Signs Date Time Temp Pulse Resp B/P (MAP) Pulse Ox O2 Delivery O2 Flow Rate FiO2 02/05/18 10:48 104/71 (82) 02/05/18 10:35 79 92 02/05/18 07:51 97.7 19 Room Air 02/05/18 07:51 2.0 Impression: Primary Impression: Hyperglycemia Condition: Stable Disposition: HOME OR SELF-CARE Referrals: ALLIE CAMPOS (PCP) Call to schedule a follow-up appointment for this week to reevaluate your blood sugar levels and adjust your insulin if necessary Patient Instructions: Diabetic Hyperglycemia (ED) Additional Instructions: Take your insulin as directed Call to schedule a follow-up appointment with your primary care provider this week to reevaluate your insulin requirements MERCEDES WYNN MD Feb 05, 2018 07:34
[2018-02-05] MEDS ORDERED: NS(*) 0.9% 1000 ML BAG 1,000 ML IV ONE (08:09)
[2018-02-05 08:26] LABS: PLATELET COUNT, AUTOMATED 208 K/uL (150-450)
--- NOTE | 2018-02-05 10:36 | RADIOLOGY IMAGING REPORT ---
FACILITY: [facility] PATIENT NAME: Caren Lofton : 1955 MR: [id number] V: [id number] EXAM DATE: ORDERING PHYSICIAN: MERCEDES WYNN TECHNOLOGIST: Location: [facility] - [place], [place] Patient: Caren Lofton : 1955 Visit/Account:[id number] Date of Sevice: 02/05/2018 HEAD W/O CONTRAST HISTORY: Falls, headaches, dizziness COMPARISON STUDIES: 05/11/2017 TECHNIQUE: Contiguous axial images were obtained from the skull base to the vertex. One of the following dose optimization techniques was utilized in the performance of this exam: Autom ated exposure control; adjustment of the mA and/or kV according to the patient's size; or use of an i terative reconstruction technique. Specific details can be referenced in the facility's radiology C T exam operational policy. FINDINGS: Hemorrhage: Negative Ventricles / sulci / fissures: Negative Masses / midline shift: Negative White matter: Negative Perdomo-white differentiation: Negative Extra-axial spaces: Negative Bones and skull base: Negative Visualized mastoid air cells / paranasal sinuses: Negative IMPRESSION: 1. Unremarkable non-contrast head CT. No evidence for acute intracranial hemorrhage, mass or acute i schemia. Report Dictated By: Chirag Wall MD at 02/05/2018 10:30 AM Report E-Signed By: Chirag Wall MD at 02/05/2018 10:32 AM WSN:[id number]
[2018-02-05 10:48] VITALS: BP 104/71
== END 2018-02-05 10:49 | disposition home or self-care (01) ==
LOC: ER 07:50
DX: E11.65 Type 2 diabetes mellitus with hyperglycemia (principal)
CPT/HCPCS: 70450; 81001; 83690; 84443; 85025; 96360; 96361; 99284; J7030; 82040; 82247; 82310; 82374; 82435; 82565; 82947; 84075; 84132; 84155; 84295; 84450; 84460; 84520

== ENCOUNTER → 2018-03-04 | Outpatient (CLI) | payer MEDICARE, MEDICAID ==
[~2018-03-04] MED LIST changes: +MECL25TA9 PO
== END ==
LOC: AMB 20:33
PROVIDERS: ATTEND Nurse Practitioner
DX: R53.1 Weakness (principal); R73.9 Hyperglycemia, unspecified
CPT/HCPCS: A0425; A0427

== ENCOUNTER → 2018-04-18 | Outpatient (CLI) | payer MEDICARE, MEDICAID ==
[~2018-04-18] MED LIST changes: +BUPR-133 PO; +OXYGENHOME INH; +QUET25TA PO
[2018-04-18 11:24] LABS: PLATELET COUNT, AUTOMATED 245 K/uL (150-450)
--- NOTE | 2018-04-18 12:20 | RADIOLOGY IMAGING REPORT ---
FACILITY: [facility] [place] PATIENT NAME: Caren Lofton : 1955 MR: [id number] V: [id number] EXAM DATE: ORDERING PHYSICIAN: CHINYERE GUZMAN TECHNOLOGIST: Location: [facility] Patient: Caren Lofton : 1955 Visit/Account:[id number] Date of Sevice: 04/18/2018 2 VIEWS CHEST INDICATION: Hypotension, headache and hypoxia. COMPARISON: 01/17/2018. FINDINGS: Cardiomediastinal silhouette and pulmonary vessels within normal limits. There is no focal infiltrate or lobar consolidation. There is no pneumothorax or pleural effusion. Faint nodular opacity seen in the left costophrenic angle region which is not seen previously. No oth er nodules. Postinflammatory changes again seen apices. Upper abdomen is unremarkable. No acute bony abnormality. Rightward convexity thoracic spine. IMPRESSION: 1. No acute cardiopulmonary process. 2. Faint nodular opacity seen in the left costophrenic angle region not seen previously. This could r epresent a nipple shadow with overlying structures. However suggest a follow-up bilateral, shallow ob lique view of the chest with nipple markers to evaluate for nipple or parenchymal abnormality. I called report to CHINYERE GUZMAN at 04/18/2018 12:10 PM. Report Dictated By: Chirag Blevins at 04/18/2018 11:58 AM Report E-Signed By: Chirag Blevins at 04/18/2018 12:17 PM WSN:[id number]
--- NOTE | 2018-04-18 16:24 | RADIOLOGY IMAGING REPORT ---
FACILITY: [facility] [place] PATIENT NAME: Caren Lofton : 1955 MR: [id number] V: [id number] EXAM DATE: ORDERING PHYSICIAN: CHINYERE GUZMAN TECHNOLOGIST: Location: [facility] [place] Patient: Caren Lofton : 1955 Visit/Account:[id number] Date of Sevice: 04/18/2018 CT CTA CHEST W & W/O CON HISTORY: hypoxia - elevated d-dimer ADDITIONAL HISTORY: None. TECHNIQUE: CTA chest with intravenous contrast. Axial imaging acquired following administration of IV contrast timed for maximum opacification of the pulmonary arterial vasculature. Slab 3-D MIP jasiel nstructed images were also created for further evaluation and interpretation. Reconstruction of the s [facility] data set includes multiplanar 2-D in the sagittal and coronal planes and 3-D reconstructed joey nal slab MIP series. 3-D images were created by the technologist.Dose Lowering Technique One of the following dose optimization techniques was utilized in the performance of this exam: Autom ated exposure control; adjustment of the mA and/or kV according to the patient's size; or use of an i terative reconstruction technique. Specific details can be referenced in the facility's radiology C T exam operational policy. CONTRAST: 75 mL Isovue-370 COMPARISON: Two view chest performed today and CT of the chest May 05, 2013 FINDINGS: Lungs/pleura: There is centrilobular emphysematous changes with upper lobe predominance. A small we dge-shaped area of consolidation in the posterior lateral aspect of the left lower lobe could represe nt a focal area of scarring versus atelectasis. Heart/vessels: There are no filling defects seen in the pulmonary arteries worrisome for a pulmonary embolus.. There is a small pericardial effusion and mild cardiomegaly Mediastinum/lymph nodes: No pathologically enlarged lymph nodes are identified Visualized upper abdomen: There is diffuse hepatic steatosis. There are postsurgical changes from a cholecystectomy. There are multiple accessory splenules left upper quadrant. There is nodular thic kening of the left adrenal gland that appears similar to the prior study Bones/soft tissues: There is a dextroconvex scoliosis of the thoracic spine with mild spondylotic ch anges Additional findings: None IMPRESSION: Centrilobular emphysema with an upper lobe predominance Small wedge-shaped area of consolidation the posterior lateral aspect left lower lobe may represent a telectasis versus scarring Small pericardial effusion and mild cardiomegaly No evidence of pulmonary emboli Diffuse hepatic steatosis. Cholecystectomy Nodular thickening the left adrenal gland appears stable when compared the prior study Report Dictated By: Kiara Paz MD at 04/18/2018 4:07 PM Report E-Signed By: Kiara Paz MD at 04/18/2018 4:17 PM WSN:[id number]
== END ==
LOC: LAB 10:47
PROVIDERS: ATTEND Nurse Practitioner Family
DX: J43.2 Centrilobular emphysema (principal); I51.7 Cardiomegaly; I31.3 Pericardial effusion (noninflammatory); K76.0 Fatty (change of) liver, not elsewhere classified; Z90.49 Acquired absence of other specified parts of digestive tract; E11.9 Type 2 diabetes mellitus without complications; E78.2 Mixed hyperlipidemia; I10 Essential (primary) hypertension; R51 Headache; R09.02 Hypoxemia; R06.01 Orthopnea; R79.89 Other specified abnormal findings of blood chemistry
CPT/HCPCS: 36415; 71046; 71275; 82040; 82247; 82274; 82310; 82374; 82435; 82465; 82565; 82947; 83036; 83630; 83718; 83880; 84075; 84132; 84155; 84295; 84450; 84460; 84478; 84520; 85025; 85045; 85379; 87045; 87324; 87449

== ENCOUNTER → 2018-04-24 | Outpatient (CLI) | payer MEDICARE, MEDICAID ==
[~2018-04-24] MED LIST changes: +BLOO-1322 MC; +BLOO-188 ASDIRECTED; +LANC-165
== END ==
LOC: RESP 12:30
PROVIDERS: ATTEND Nurse Practitioner Family
DX: J98.4 Other disorders of lung (principal)
CPT/HCPCS: 94060; 94726; 94729

== ENCOUNTER → 2018-04-27 | Outpatient (CLI) | payer MEDICARE, MEDICAID ==
[2018-04-27 08:59] LABS: INR 0.94
--- NOTE | 2018-04-27 10:20 | RADIOLOGY IMAGING REPORT ---
FACILITY: [facility] PATIENT NAME: Caren Lofton : 1955 MR: [id number] V: [id number] EXAM DATE: ORDERING PHYSICIAN: CHINYERE GUZMAN TECHNOLOGIST: [facility] Patient: Caren Lofton : 1955 Visit/Account:[id number] Date of Sevice: 04/27/2018 EXAMINATION: Limited right upper quadrant ultrasound 04/27/2018 9:00 AM HISTORY: Enlarged liver. COMPARISON STUDIES: none. FINDINGS: Gallbladder: Surgically absent Liver: Prominent with a craniocaudal dimension of just over 16 cm. Diffusely increased echogenicity. No focal lesion. Portal vein is patent with flow towards the liver. Common duct: 8 mm. This is similar to the CT. No visible choledocholithiasis. Pancreas: Partially obscured by bowel gas. Visualized portions are unremarkable. Right kidney: 9 mm cyst adjacent to the pelvis. Upper abdominal aorta and IVC: negative Ascites: none IMPRESSION: 1. Prominent and echogenic liver consistent with fatty infiltration. No gross cirrhotic features de monstrated sonographically. Portal vein is patent. 2. Prior cholecystectomy. Mild CBD prominence is presumptively postsurgical and is unchanged. No v isible choledocholithiasis. 3. Incomplete visualization of the pancreas. Visualized portions are unremarkable. Report Dictated By: Marck Morgan MD at 04/27/2018 10:09 AM Report E-Signed By: Marck Morgan MD at 04/27/2018 10:15 AM WSN:[email or web address]
== END ==
LOC: US 00:41
PROVIDERS: ATTEND Nurse Practitioner Family
DX: K76.0 Fatty (change of) liver, not elsewhere classified (principal)
CPT/HCPCS: 36415; 76705; 85610

== ENCOUNTER → 2018-05-19 | Outpatient (CLI) | payer MEDICARE, MEDICAID ==
[~2018-05-19] MED LIST changes: +BUPR300T56; +MIRT-25; +QUET100T; +TOPI-23
[2018-05-19 11:59] LABS: PLATELET COUNT, AUTOMATED 256 K/uL (150-450)
== END ==
LOC: LAB 11:05
PROVIDERS: ATTEND Nurse Practitioner Family
DX: K92.1 Melena (principal)
CPT/HCPCS: 36415; 85025; 85045

== ENCOUNTER → 2018-05-20 | Outpatient (REF) | payer MEDICARE, MEDICAID | LOC: ZZSENDIN 08:12 | PROVIDERS: ATTEND Nurse Practitioner Family | DX: K92.1 Melena (principal) | CPT/HCPCS: 82274 ==

== ENCOUNTER → 2018-06-19 | Outpatient (CLI) | payer MEDICARE, MEDICAID | LOC: LAB 14:18 | PROVIDERS: ATTEND Nurse Practitioner Family | DX: R79.89 Other specified abnormal findings of blood chemistry (principal); E78.5 Hyperlipidemia, unspecified | CPT/HCPCS: 36415; 84439; 84443; 84480 ==

== ENCOUNTER → 2018-07-21 | Outpatient (CLI) | payer MEDICARE, MEDICAID ==
[~2018-07-21] MED LIST changes: +LISI-362 PO
== END ==
LOC: US 05-03 01:07 → RAD 14:54
PROVIDERS: ATTEND Nurse Practitioner Family
DX: R16.0 Hepatomegaly, not elsewhere classified (principal); E11.9 Type 2 diabetes mellitus without complications
CPT/HCPCS: 36415; 83036

== ENCOUNTER 2018-07-22 05:55 | Emergency (ER) | payer MEDICARE, MEDICAID ==
--- NOTE | 2018-07-22 06:09 | ER Report ---
History and Physical Time Seen By MD: 06:09 Hx. of Stated Complaint: PATIENT STATES SHE FELL FROM STANDING LAST NIGHT AT 1900. COMPLAINS OF LEFT FOOT PAIN HPI/ROS CHIEF COMPLAINT: left foot pain. HISTORY OF PRESENT ILLNESS: This is a 63 year old female. She fell from standing last night at about 1900 hours. Having left foot pain and swelling, lateral side, hurts to bear weight. Normal sensation in the foot. Can move it but makes pain worse. Allergies: Coded Allergies: morphine (Verified Allergy, Severe, poss sz, 07/22/18) aspirin (Verified Adverse Reaction, Mild, 07/22/18) glucosamine (Verified Adverse Reaction, Unknown, 07/22/18) Home Meds Active Scripts Hydrocodone Bit/Acetaminophen (HYDROCODON-ACETAMINOPHEN 5-325) 1 Each Tablet, 1 EACH PO Q4H PRN for PAIN, #12 TAB 0 Refills Prov:CYNDY MEZA MD 07/22/18 Lisinopril (LISINOPRIL) 10 Mg Tablet, 1 TAB PO QDAY, #90 TAB 1 Refill Prov:CHINYERE GUZMAN APRN-C 07/21/18 Insulin Glargine,Hum.rec.anlog (Basaglar Kwikpen U-100) 100 Unit/Ml (3 Ml) Insuln.pen, 42 UNITS SUBQ DAILY, #4 EACH 5 Refills Take 12 units in the morning and 30 units at bedtime Prov:CHINYERE GUZMAN APRN-C 07/20/18 Oxygen (OXYGEN) Inha, 2 L INH DAILY, #2 L Prov:CHINYERE GUZMAN APRN-C 06/19/18 Albuterol Sulfate (VENTOLIN HFA) 18 Gm Inh, 2 PUFF INH 3-4XD, #1 INH 1 Refill Prov:CHINYERE GUZMAN APRN-C 06/19/18 Insulin Glargine (LANTUS) 100 Unit/Ml Soln, 40 UNIT SUBQ DAILY, #30 ML Prov:CHINYERE GUZMAN APRN-C 06/09/18 Simvastatin (SIMVASTATIN) 40 Mg Tablet, 1 TAB PO HS, #30 TAB 5 Refills For high cholesterol Prov:CHINYERE GUZMAN APRN-C 05/19/18 Metformin Hcl (METFORMIN HCL) 500 Mg Tablet, 1 TAB PO BID, #60 TAB 5 Refills For diabetes Prov:CHINYERE GUZMAN APRN-Ines 05/19/18 Esomeprazole Magnesium (NEXIUM) 40 Mg Capsule.dr, 1 CAP PO QDAY, #30 CAP 5 Refills For acid reflux Prov:CHINYERE GUZMAN APRNP-C 05/19/18 Gabapentin (GABAPENTIN) 300 Mg Capsule, 1 CAP PO BID, #60 CAPSULE 5 Refills For diabetic neuropathy pain and sciatic pain Prov:CHINYERE GUZMAN APRNP-C 05/19/18 Fluticasone Prop 50 Mcg Ns (FLONASE 50 MCG NS) 16 Gm [place].susp, 1 SPRAY NS BID, #1 BOT 5 Refills For allergies Prov:CHINYERE GUZMAN APRN-Ines 05/19/18 Montelukast Sodium (MONTELUKAST SODIUM) 10 Mg Tablet, 1 TAB PO DAILY, #30 TAB 5 Refills For allergies Prov:CHINYERE GUZMAN APRN-Ines 05/19/18 Lancets (Blood Lancets) 30 Gauge Each, EA TID, #300 3 Refills Prov:CHINYERE GUZMAN APRN-Ines 04/26/18 Blood-Glucose Meter (One Touch Verio) 1 Each Each, UNIT ASDIRECTED TID, #1 Prov:CHINYERE GUZMAN APRN-Ines 04/26/18 Blood Sugar Diagnostic (ONE TOUCH VERIO) 1 Each Strip, 1 EACH MC TID, #300 STRIP 3 Refills Prov:CHINYERE GUZMAN APRN-C 04/26/18 [place], Insulin Disposable (INSULIN PEN NEEDLE) 1 Each Dis.needle, 1 BOX MC QDAY, #1 1 Refill Check fasting glucose every morning. Prov:SEEMA STILES MD 04/09/15 Reported Medications Bupropion Hcl (BUPROPION XL) 300 Mg Tab.er.24h 05/19/18 Quetiapine Fumarate (QUETIAPINE FUMARATE) 100 Mg Tablet 05/19/18 Mirtazapine (MIRTAZAPINE) 30 Mg Tablet 05/19/18 Topiramate (TOPIRAMATE) 25 Mg Tablet 05/19/18 Aspirin (ASPIRIN) 81 Mg Tab.chew, 2 TAB PO QDAY, TAB.CHEW 06/01/17 Clonazepam (CLONAZEPAM) 1 Mg Tablet, 1 TAB PO BID, #6 TAB 01/09/15 Discontinued Scripts Lisinopril (LISINOPRIL) 5 Mg Tablet, 1 TAB PO DAILY, #30 TAB 5 Refills For high blood pressure Prov:CHINYERE GUZMAN [employer] SU[employer] EQUIPMENT REPAIRER BENCH MACHINE OPERATOR-C 05/19/18 Reviewed Nurses Notes: Yes Hx Smoking: Yes (1 ppd) Smoking Status: Current: Every Day Smoker Exposure to Second Hand Smoke?: Yes Hx Substance Use Disorder: No (VERY LITTLE IN EARLY ADOLESCENCE) Hx Alcohol Use: No Constitutional Vital Sign - Last 24 Hours 07/22/18 07/22/18 07/22/18 07/22/18 05:55 06:00 06:02 06:04 Temp 97.8 Pulse ??? 88 Resp 15 B/P (MAP) 130/61 (84) 130/61 123/60 (81) Pulse Ox 83 O2 Delivery Room Air 07/22/18 07/22/18 07/22/18 07/22/18 06:25 06:30 06:55 07:00 Pulse 81 73 72 B/P (MAP) 96/45 (62) 117/60 (79) Pulse Ox 94 96 95 07/22/18 07:30 Pulse 74 B/P (MAP) 122/55 (77) Pulse Ox 95 Physical Exam General: Alert and no acute distress. Musculoskeletal: Pain over proximal 5th metatarsal. Swelling in this area as well. Normal range of motion, but with pain. Skin: No breakdown. Neuro: Normal sensation. Cardiovascular: Normal pulses and peripheral perfusion. Medical Decision Making EKG/Imaging Imaging INDICATION: foot injury, are of 5th metatarsal EXAM DATE: 07/22/2018 6:14 AM COMPARISON: None. FINDINGS: 3 views left foot. Mineralization is normal. There is a nondisplaced proximal transverse fracture of the 5th metatarsal. Soft tissues are unremarkable. IMPRESSION: Nondisplaced proximal fracture of the left 5th metatarsal. Report Dictated By: Rocco Alejandro MD at 07/22/2018 6:56 AM ED Course/Re-evaluation ED Course Foot with proximal 5th metatarsal fracture. Stirrup and posterior splint applied. No weight bearing. Follow-up with orthopedic surgery this week. Procedure: Posterior and stirrup half cast placement. A half-cast/splint as noted above was applied. After application of the half- cast, I returned and re-examined the patient. The half-cast was adequately immobilizing the joint and distally the patient's circulation and sensation was intact. This was applied by myself. Decision to Disposition Date: July 22, 2018 Decision to Disposition Time: 07:21 Depart Departure Latest Vital Signs Vital Signs Date Time Temp Pulse Resp B/P (MAP) Pulse Ox O2 Delivery O2 Flow Rate FiO2 07/22/18 07:30 74 122/55 (77) 95 07/22/18 06:02 97.8 15 Room Air Impression: Primary Impression: Fracture of 5th metatarsal Condition: Improved Disposition: HOME OR SELF-CARE Referrals: CHINYERE GUZMAN APRN BENCH MACHINE OPERATOR-C (PCP) New Scripts Hydrocodone Bit/Acetaminophen (HYDROCODON-ACETAMINOPHEN 5-325) 1 Each Tablet 1 EACH PO Q4H PRN for PAIN, #12 TAB 0 Refills Prov: CYNDY MEZA MD 07/22/18 Patient Instructions: Foot Fracture in Adults (ED) Additional Instructions: Call [facility] on Tuesday morning to schedule an appointment for early in the week to be seen for the fracture in your foot. You will be wearing a splint on your foot. Use a walker with no weight bearing on that foot. Keep the foot elevated while at rest. Apply ice over the splint every 1-2 hours while at rest for about 30 minutes. Problem Qualifiers Primary Impression: Fracture of 5th metatarsal Encounter type: initial encounter Fracture type: closed Fracture alignment: displaced Laterality: right Qualified Codes: S92.351A - Displaced fracture of fifth metatarsal bone, right foot, initial encounter for closed fracture CYNDY MEZA MD July 22, 2018 06:09
--- NOTE | 2018-07-22 07:01 | RADIOLOGY IMAGING REPORT ---
FACILITY: [facility] PATIENT NAME: Caren Lofton : 1955 MR: [id number] V: [id number] EXAM DATE: ORDERING PHYSICIAN: CYNDY MEZA TECHNOLOGIST: Location: [facility] [place] Patient: Caren Lofton : 1955 Visit/Account:[id number] Date of Sevice: 07/22/2018 INDICATION: foot injury, are of 5th metatarsal EXAM DATE: 07/22/2018 6:14 AM COMPARISON: None. FINDINGS: 3 views left foot. Mineralization is normal. There is a nondisplaced proximal transverse fracture of the 5th metatarsal. Soft tissues are unremarkable. IMPRESSION: Nondisplaced proximal fracture of the left 5th metatarsal. Report Dictated By: Rocco Alejandro MD at 07/22/2018 6:56 AM Report E-Signed By: Rocco Alejandro MD at 07/22/2018 6:57 AM [id number]
[2018-07-22 07:30] VITALS: BP 122/55
[2018-07-22] MEDS ORDERED: ACET/HYDROC 5/325MG TH ER ONLY 2 TAB/BOTTLE PO ONE (07:30)
[2018-07-22] MEDS ORDERED: LOR5/325 PO (07:31)
== END 2018-07-22 08:11 | disposition home or self-care (01) ==
LOC: ER 06:00
DX: S92.351A Displaced fracture of fifth metatarsal bone, right foot, initial encounter for closed fracture (principal)
CPT/HCPCS: 99283

== ENCOUNTER → 2018-07-31 | Outpatient (CLI) | payer MEDICARE, MEDICAID ==
--- NOTE | 2018-07-31 10:15 | RADIOLOGY IMAGING REPORT ---
FACILITY: [facility] [place] PATIENT NAME: Caren Lofton : 1955 MR: [id number] V: [id number] EXAM DATE: ORDERING PHYSICIAN: CHINYERE GUZMAN TECHNOLOGIST: Location: [facility] [place] Patient: Caren Lofton : 1955 Visit/Account:[id number] Date of Sevice: 07/31/2018 Technique: FOOT 3 VIEW LEFT HISTORY: fracture 5th metatarsal Comparison studies: July 22, 2018 FINDINGS: Redemonstrated is a nondisplaced fracture involving the base of the left fifth metatarsal. The alignment is unchanged. Fracture line remains conspicuous. IMPRESSION: 1. Unchanged nondisplaced fracture involving the base of the left fifth metatarsal Report Dictated By: Kevan Luke DO at 07/31/2018 10:09 AM Report E-Signed By: Kevan Luke DO at 07/31/2018 10:10 AM WSN:[id number]
== END ==
LOC: RAD 08:47
PROVIDERS: ATTEND Nurse Practitioner Family
DX: S92.351A Displaced fracture of fifth metatarsal bone, right foot, initial encounter for closed fracture (principal)

== ENCOUNTER 2018-08-12 06:43 | Emergency (ER) | payer MEDICARE, MEDICAID ==
[~2018-08-12 06:43] MED LIST changes: -OMEP-125 PO; +OMEP-126 PO; -RANI-366 PO; +RANI-54 PO; -TRAZ50TA34 PO; +TRAZ50TA52 PO
[2018-08-12 07:00] VITALS: BP 119/55
--- NOTE | 2018-08-12 07:15 | ER Report ---
History and Physical Time Seen By MD: 07:15 Hx. of Stated Complaint: PATIENT REPORTS COUGING UP MUCUS FOR THE LAST 4 DAYS. ALSO REPORTS NOT CHECKING BLOOD SUGAR FOR 24 HOURS BECAUSE AT HOME GLUCOMETER IS NOT WORKING HPI/ROS History of COPD, daily smoker, as well as DMII. Presented to the ED stating that her glucometer has not worked properly for the past 12-24 hours. She does not have any other complaints. She forgot to wear her oxygen that she normally wears. SHe does not feel SOB. Remainder of the 14 system rev: Yes Allergies: Coded Allergies: morphine (Verified Allergy, Severe, poss sz, 07/22/18) aspirin (Verified Adverse Reaction, Mild, 07/22/18) glucosamine (Verified Adverse Reaction, Unknown, 07/22/18) Home Meds Active Scripts Esomeprazole Magnesium (NEXIUM) 40 Mg Capsule.dr, 1 CAP PO QDAY, #90 CAP 0 Refills For acid reflux Prov:CHINYERE GUZMAN APRN-C 08/11/18 Lisinopril (LISINOPRIL) 10 Mg Tablet, 1 TAB PO QDAY, #90 TAB 1 Refill Prov:CHINYERE GUZMAN APRN-C 07/21/18 Insulin Glargine,Hum.rec.anlog (Basaglar Kwikpen U-100) 100 Unit/Ml (3 Ml) Insuln.pen, 42 UNITS SUBQ DAILY, #4 EACH 5 Refills Take 12 units in the morning and 30 units at bedtime Prov:CHINYERE GUZMAN APRN-C 07/20/18 Oxygen (OXYGEN) Inha, 2 L INH DAILY, #2 L Prov:CHINYERE GUZMAN APRN-C 06/19/18 Albuterol Sulfate (VENTOLIN HFA) 18 Gm Inh, 2 PUFF INH 3-4XD, #1 INH 1 Refill Prov:CHINYERE GUZMAN APRN-C 06/19/18 Simvastatin (SIMVASTATIN) 40 Mg Tablet, 1 TAB PO HS, #30 TAB 5 Refills For high cholesterol Prov:CHINYERE GUZMAN APRN-C 05/19/18 Metformin Hcl (METFORMIN HCL) 500 Mg Tablet, 1 TAB PO BID, #60 TAB 5 Refills For diabetes Prov:CHINYERE GUZMAN APRNP-C 05/19/18 Fluticasone Prop 50 Mcg Ns (FLONASE 50 MCG NS) 16 Gm [place].susp, 1 SPRAY NS BID, #1 BOT 5 Refills For allergies Prov:CHINYERE GUZMAN APRN-C 05/19/18 Montelukast Sodium (MONTELUKAST SODIUM) 10 Mg Tablet, 1 TAB PO DAILY, #30 TAB 5 Refills For allergies Prov:CHINYERE GUZMAN APRN-C 05/19/18 Lancets (Blood Lancets) 30 Gauge Each, EA TID, #300 3 Refills Prov:CHINYERE GUZMAN APRN-C 04/26/18 Blood-Glucose Meter (One Touch Verio) 1 Each Each, UNIT ASDIRECTED TID, #1 Prov:CHINYERE GUZMAN APRN-C 04/26/18 Blood Sugar Diagnostic (ONE TOUCH VERIO) 1 Each Strip, 1 EACH MC TID, #300 STRIP 3 Refills Prov:CHINYERE GUZMAN APRN-C 04/26/18 [place], Insulin Disposable (INSULIN PEN NEEDLE) 1 Each Dis.needle, 1 BOX MC QDAY, #1 1 Refill Check fasting glucose every morning. Prov:SEEMA STILES MD 04/09/15 Reported Medications Bupropion Hcl (BUPROPION XL) 300 Mg Tab.er.24h 05/19/18 Quetiapine Fumarate (QUETIAPINE FUMARATE) 100 Mg Tablet 05/19/18 Mirtazapine (MIRTAZAPINE) 30 Mg Tablet 05/19/18 Topiramate (TOPIRAMATE) 25 Mg Tablet 05/19/18 Clonazepam (CLONAZEPAM) 1 Mg Tablet, 1 TAB PO BID, #6 TAB 01/09/15 Discontinued Reported Medications Aspirin (ASPIRIN) 81 Mg Tab.chew, 2 TAB PO QDAY, TAB.CHEW 06/01/17 Discontinued Scripts Hydrocodone Bit/Acetaminophen (HYDROCODON-ACETAMINOPHEN 5-325) 1 Each Tablet, 1 EACH PO Q4H PRN for PAIN, #12 TAB 0 Refills Prov:CYNDY MEZA MD 07/22/18 Gabapentin (GABAPENTIN) 300 Mg Capsule, 1 CAP PO BID, #60 CAPSULE 5 Refills For diabetic neuropathy pain and sciatic pain Prov:CHINYERE GUZMAN APRN-C 05/19/18 Reviewed Nurses Notes: Yes Old Medical Records Reviewed: Yes Hx Smoking: Yes (1 ppd) Smoking Status: Current: Every Day Smoker Exposure to Second Hand Smoke?: Yes Hx Substance Use Disorder: No (VERY LITTLE IN EARLY ADOLESCENCE) Hx Alcohol Use: No Constitutional Vital Sign - Last 24 Hours 08/12/18 08/12/18 08/12/18 08/12/18 06:43 06:47 06:47 07:00 Temp 97.7 Pulse 85 94 Resp 16 B/P (MAP) 121/53 (75) 121/53 119/55 (76) Pulse Ox 80 O2 Delivery Room Air 08/12/18 08/12/18 08/12/18 07:01 07:03 07:23 Pulse 78 81 Pulse Ox 92 94 O2 Flow Rate 2.0 Physical Exam General Appearance: The patient is alert, has no immediate need for airway protection and no current signs of toxicity. Eyes: Pupils equal and round no injection. Respiratory: Chest is non tender, lungs are clear to auscultation. Cardiac: regular rate and rhythm Gastrointestinal: Abdomen is soft and non tender, no masses, bowel sounds normal. Medical Decision Making ED Course/Re-evaluation ED Course The patient is mildly hyperglycemic secondary to not taking her medications due to her glucometer not operating correctly for 12-24 hours. She has no other complaints. Her oxygen level was low upon arrival, b/c the patient did not wear her oxygen. I gave her a prescription for a new glucometer, and she will resume her home medication regimen for her DM. Decision to Disposition Date: Aug 12, 2018 Decision to Disposition Time: 07:16 Depart Departure Latest Vital Signs Vital Signs Date Time Temp Pulse Resp B/P (MAP) Pulse Ox O2 Delivery O2 Flow Rate FiO2 08/12/18 07:23 81 94 08/12/18 07:01 2.0 08/12/18 07:00 119/55 (76) 08/12/18 06:47 97.7 16 Room Air Impression: Primary Impression: Hyperglycemia Additional Impression: Encounter for glucometer instruction Condition: Improved Disposition: HOME OR SELF-CARE Referrals: CHINYERE GUZMAN APRN-C (PCP) Patient Instructions: Diabetic Hyperglycemia (ED) Additional Instructions: Make sure you warp picker all of your prescribed medications and take them as directed Problem Qualifiers WILDER MONTERO MD Aug 12, 2018 07:15
== END 2018-08-12 07:36 | disposition home or self-care (01) ==
LOC: ER 07:19
DX: E11.65 Type 2 diabetes mellitus with hyperglycemia (principal); R09.02 Hypoxemia; F17.210 Nicotine dependence, cigarettes, uncomplicated
CPT/HCPCS: 99282

== ENCOUNTER 2018-10-02 20:27 | Emergency (ER) | payer MEDICARE, MEDICAID ==
[~2018-10-02 20:27] MED LIST changes: +LEVI SUBQ
--- NOTE | 2018-10-02 20:48 | ER Report ---
History and Physical Time Seen By MD: 20:42 Hx. of Stated Complaint: PATIENT REPORTS TAKING A TOTAL OF 90 UNITS OF LONG ACTING INSULIN THROUGHOUT TODAY, STATES BLOOD SUGAR HAS BEEN DROPPING HPI/ROS CHIEF COMPLAINT: Too much insulin and now blood sugars are low HISTORY OF PRESENT ILLNESS: This is a 63-year-old female. She took 3 doses of her new long-acting insulin. The long-acting insulin as Levemir and has been used for a few weeks now. This is an EpiPen form. She didn't understand that it was not rapid acting insulin because her blood sugars are running too high, took 2 extra doses in addition to her morning 30 unit dose. Took 2 extra 30 units doses for a total of 90 units through the day. Noticing her blood sugar went from in the 500s early this morning and now was 71 before coming in. She was feeling a little flushed and like the sugar was running low. She did eat dinner tonight and did eat some snacks to bring this up. Denies any other symptoms such as symptoms of illness such as nausea or vomiting. No shortness of breath. No chest pain. Normal bowel and bladder function. Allergies: Coded Allergies: morphine (Verified Allergy, Severe, poss sz, 10/02/18) aspirin (Verified Adverse Reaction, Mild, 10/02/18) glucosamine (Verified Adverse Reaction, Unknown, 10/02/18) Home Meds Active Scripts Insulin Detemir (LEVEMIR) 100 Unit/Ml Injs, 42 UNIT SUBQ QDAY for 30 Days, #5 PEN 5 Refills Take 12 units in the morning and 30 units in the evening. Prov:GABINO HOWARD PHARMD 09/06/18 Clonazepam (CLONAZEPAM) 1 Mg Tablet, 1 TAB PO TID, #6 TAB Takes 1 in the morning and 2 in the evening Prov:GABINO HOWARD PHARMD 09/06/18 Esomeprazole Magnesium (NEXIUM) 40 Mg Capsule., 1 CAP PO QDAY, #90 CAP 0 Refi lls For acid reflux Prov:CHINYERE GUZMAN APRNP-C 08/11/18 Lisinopril (LISINOPRIL) 10 Mg Tablet, 1 TAB PO QDAY, #90 TAB 1 Refill Prov:CHINYERE GUZMAN APRN-C 07/21/18 Insulin Glargine,Hum.rec.anlog (Basaglar Kwikpen U-100) 100 Unit/Ml (3 Ml) In suln.pen, 42 UNITS SUBQ DAILY, #4 EACH 5 Refills Take 12 units in the morning and 30 units at bedtime Prov:CHINYERE GUZMAN APRNP-C 07/20/18 Oxygen (OXYGEN) Inha, 2 L INH DAILY, #2 L Prov:CHINYERE GUZMAN APRN-C 06/19/18 Albuterol Sulfate (VENTOLIN HFA) 18 Gm Inh, 2 PUFF INH 3-4XD, #1 INH 1 Refill Prov:CHINYERE GUZMAN APRN-C 06/19/18 Simvastatin (SIMVASTATIN) 40 Mg Tablet, 1 TAB PO HS, #30 TAB 5 Refills For high cholesterol Prov:CHINYERE GUZMAN APRN-C 05/19/18 Metformin Hcl (METFORMIN HCL) 500 Mg Tablet, 1 TAB PO BID, #60 TAB 5 Refills For diabetes Prov:CHINYERE GUZMAN APRN-C 05/19/18 Fluticasone Prop 50 Mcg Ns (FLONASE 50 MCG NS) 16 Gm Marlow.susp, 1 SPRAY NS BID, #1 BOT 5 Refills For allergies Prov:CHINYERE GUZMAN APRN-C 05/19/18 Montelukast Sodium (MONTELUKAST SODIUM) 10 Mg Tablet, 1 TAB PO DAILY, #30 TAB 5 Refills For allergies Prov:CHINYERE GUZMAN APRN-C 05/19/18 Lancets (Blood Lancets) 30 Gauge Each, EA TID, #300 3 Refills Prov:CHINYERE GUZMAN APRN-C 04/26/18 Blood-Glucose Meter (One Touch Verio) 1 Each Each, UNIT ASDIRECTED TID, #1 Prov:CHINYERE GUZMAN APRN-C 04/26/18 Blood Sugar Diagnostic (ONE TOUCH VERIO) 1 Each Strip, 1 EACH MC TID, #300 STRIP 3 Refills Prov:CHINYERE GUZMAN APRN-C 04/26/18 Ada, Insulin Disposable (INSULIN PEN NEEDLE) 1 Each Dis.needle, 1 BOX MC QDAY, #1 1 Refill Check fasting glucose every morning. Prov:SEEMA STILES MD 04/09/15 Reported Medications Bupropion Hcl (BUPROPION XL) 300 Mg Tab.er.24h 05/19/18 Quetiapine Fumarate (QUETIAPINE FUMARATE) 100 Mg Tablet 05/19/18 Mirtazapine (MIRTAZAPINE) 30 Mg Tablet 05/19/18 Topiramate (TOPIRAMATE) 25 Mg Tablet 05/19/18 Reviewed Nurses Notes: Yes Hx Smoking: Yes (1 ppd) Smoking Status: Current: Every Day Smoker Exposure to Second Hand Smoke?: Yes Hx Substance Use Disorder: No (VERY LITTLE IN EARLY ADOLESCENCE) Hx Alcohol Use: No Constitutional Vital Sign - Last 24 Hours 10/02/18 10/02/18 10/02/18 10/02/18 20:32 20:36 20:57 21:00 Temp 97.9 Pulse 72 67 Resp 17 B/P (MAP) 152/88 (109) 152/88 140/52 (81) Pulse Ox 82 92 O2 Delivery Room Air 10/02/18 10/02/18 10/02/18 10/02/18 21:30 21:35 22:00 22:05 Pulse 69 76 B/P (MAP) 136/54 (81) 126/66 (86) Pulse Ox 94 88 10/02/18 10/02/18 10/02/18 10/02/18 22:30 22:35 22:40 23:00 Pulse 66 67 B/P (MAP) 129/50 (76) 136/56 (82) Pulse Ox 92 91 10/02/18 10/02/18 10/02/18 10/03/18 23:10 23:30 23:35 00:00 Pulse 69 65 B/P (MAP) 152/65 (94) 149/93 (111) Pulse Ox 91 95 10/03/18 10/03/18 10/03/18 10/03/18 00:05 00:35 00:40 01:00 Pulse 72 71 B/P (MAP) 136/56 (82) Pulse Ox 96 92 93 10/03/18 10/03/18 10/03/18 01:10 01:30 01:40 Pulse 64 ??? B/P (MAP) 148/70 (96) Pulse Ox 92 89 Intake and Output 10/02/18 10/02/18 10/03/18 15:03 23:03 07:03 Intake Total 1000 ml Balance 1000 ml Physical Exam General Appearance: Alert, no acute distress. No signs of toxicity. Eyes: Pupils equal and round no injection. ENT: Normal oral mucosa. Moist mucous membranes. Respiratory: Lungs clear to auscultation. Cardiac: regular rate and rhythm. No edema. Gastrointestinal: Abdomen is soft, nontender, nondistended. Neuro: Alert and oriented 3, no acute distress. Musculoskeletal: Extremities have full range of motion. Non tender. Skin: No rashes or lesions. DIFFERENTIAL DIAGNOSIS: After history and physical exam differential diagnosis was considered for over use of long-acting insulin tonight, this was all in the morning and should be metabolized before long. I think watching her to make sure she is maintaining adequate blood sugars and not dropping too much will be important over the next several hours. Medical Decision Making Data Points Result Diagram: 10/02/18 2146 Laboratory Chemistry Test 10/02/18 21:46 10/03/18 01:57 Sodium Level 137 mmol/L (137-145) Potassium Level 3.6 mmol/L (3.5-5.0) Chloride Level 108 mmol/L (98-107) Carbon Dioxide Level 19 mmol/L (22-31) Blood Urea Nitrogen 16 mg/dl (7-18) Creatinine 1.10 mg/dl (0.52-1.04) Glomerular Filtration Rate Calc 50.2 Random Glucose 143 mg/dl (75-110) Calcium Level 8.8 mg/dl (8.4-10.2) Total Bilirubin 0.2 mg/dl (0.2-1.3) Aspartate Amino Transf (AST/SGOT) 16 U/L (0-35) Alanine Aminotransferase (ALT/SGPT) 23 U/L (0-56) Alkaline Phosphatase 73 U/L (0-126) Total Protein 6.9 g/dl (6.3-8.2) Albumin 3.7 g/dl (3.5-5.0) Whole Blood Glucose 201 mg/DL (75-110) ED Course/Re-evaluation ED Course Did hourly blood sugars over the 5 hours while she was here in the ER. These did seem to stabilize with a few drops earlier that resolved with eating. Instructions to monitor sugars should she have further symptoms and to discuss with her primary care provider any changes that need to be made with her insulin regimen. Decision to Disposition Date: Oct 03, 2018 Decision to Disposition Time: 02:04 Depart Departure Latest Vital Signs Vital Signs Date Time Temp Pulse Resp B/P (MAP) Pulse Ox O2 Delivery O2 Flow Rate FiO2 10/03/18 01:40 ??? 89 10/03/18 01:30 148/70 (96) 10/02/18 20:36 97.9 17 Room Air Impression: Primary Impression: Hypoglycemia associated with diabetes Condition: Improved Disposition: HOME OR SELF-CARE Referrals: CHINYERE GUZMAN APRN [employer] (PCP) Patient Instructions: Hypoglycemia in a Person with Diabetes (ED) Additional Instructions: Resume your normal dose of [place] insulin. Call and schedule an appointment with your primary care provider. If feeling shaky, sweaty or weak, check your blood sugar and if low, make sure to eat some foods and check again in about 30 minutes. Return to the hospital if having further problems. CYNDY MEZA MD Oct 02, 2018 20:48
[2018-10-02] MEDS ORDERED: NS(*) 0.9% 1000 ML BAG 1,000 ML IV ONE (21:30)
[2018-10-03 01:30] VITALS: BP 148/70
== END 2018-10-03 02:15 | disposition home or self-care (01) ==
LOC: ER 20:59
DX: E11.649 Type 2 diabetes mellitus with hypoglycemia without coma (principal); F17.200 Nicotine dependence, unspecified, uncomplicated; Z79.4 Long term (current) use of insulin; Z79.899 Other long term (current) drug therapy
CPT/HCPCS: 36415; 36416; 82948; 99283; J7030; 82040; 82247; 82310; 82374; 82435; 82565; 82947; 84075; 84132; 84155; 84295; 84450; 84460; 84520

== ENCOUNTER → 2018-10-24 | Outpatient (CLI) | payer MEDICARE, MEDICAID ==
[2018-10-24 12:10] LABS: PLATELET COUNT, AUTOMATED 214 K/uL (150-450)
== END ==
LOC: LAB 11:39
PROVIDERS: ATTEND Nurse Practitioner Family
DX: R51 Headache (principal); E11.9 Type 2 diabetes mellitus without complications; E78.2 Mixed hyperlipidemia; I10 Essential (primary) hypertension
CPT/HCPCS: 82040; 82247; 82310; 82374; 82435; 82465; 82565; 82947; 83036; 83718; 84075; 84132; 84155; 84295; 84443; 84450; 84460; 84478; 84520; 85025; 85651; 86140